=== PATIENT | female | born 1940 | race Caucasian/White ===

== ENCOUNTER 2018-03-06 02:53 | Inpatient (IN) | payer MEDICARE, OTHER ==
[2018-03-06] MEDS ORDERED: IPRATROPIUM/ALBUTEROL 0.5-2.5 MG/3 ML AMPUL NEB ONE (03:50)
--- NOTE | 2018-03-06 04:25 | RADIOLOGY REPORT (SQ) ---
EXAM DESCRIPTION: XR CHEST 2 VIEWS COMPLETED DATE/TME: 03/06/2018 04:08 CLINICAL HISTORY: 77 years, Female, cough COMPARISON: None. NUMBER OF VIEWS: Two TECHNIQUE: Two views of the chest LIMITATIONS: None. FINDINGS: There is pulmonary vascular congestion with interstitial edema. The heart is normal in size. There is no pneumothorax. Small pleural effusions may be present. There is no acute fracture. IMPRESSION: Pulmonary vascular congestion with interstitial edema 2010 [employer]- All Rights Reserved
[2018-03-06 04:58] LABS: ABSOLUTE EOSINOPHILS # (AUTO) 0.1 10^3/uL (0.0-0.6); ABSOLUTE LYMPHOCYTES (AUTO) 1.7 10^3/uL (0.5-4.7); ABSOLUTE MONOCYTES (AUTO) 0.6 10^3/uL (0.1-1.4); ABSOLUTE NEUT (AUTO) 3.8 10^3/uL (1.7-8.2); BASOPHILS % (AUTO) 0.6 % (0-2); EOSINOPHILS % (AUTO) 1.3 % (0-6); HEMOGLOBIN 13.7 g/dL (12.0-15.5); LYMPHOCYTES % (AUTO) 27.7 % (13-45); MEAN CORPUSCULAR HEMOGLOBIN 29.1 pg (27.0-33.4); MEAN CORPUSCULAR HGB CONC 34.3 g/dL (32.0-36.0); MEAN CORPUSCULAR VOLUME 85 fl (80-97); MONOCYTES % (AUTO) 9.4 % (3-13); PLATELET COUNT 246 10^3/uL (150-450); RED BLOOD COUNT 4.71 10^6/uL (3.72-5.28); RED CELL DISTRIBUTION WIDTH 14.2 % (11.5-14.0); TOTAL CELLS COUNTED % (AUTO) 100 %; WHITE BLOOD COUNT 6.2 10^3/uL (4.0-10.5)
[2018-03-06 05:12] LABS: ALANINE AMINOTRANSFERASE 24 U/L (9-52); ALBUMIN 3.9 g/dL (3.5-5.0); ALKALINE PHOSPHATASE 67 U/L (38-126); ANION GAP 9 (5-19); ASPARTATE AMINO TRANSFERASE 24 U/L (14-36); BILIRUBIN,DIRECT 0.5 mg/dL (0.0-0.4); BILIRUBIN,TOTAL 0.8 mg/dL (0.2-1.3); BLOOD UREA NITROGEN 16 mg/dL (7-20); CALCIUM 9.3 mg/dL (8.4-10.2); CARBON DIOXIDE 28 mmol/L (22-30); CHLORIDE 102 mmol/L (98-107); GLUCOSE 131 mg/dL (75-110); SODIUM 139.4 mmol/L (137-145); TOTAL PROTEIN 6.9 g/dL (6.3-8.2)
--- NOTE | 2018-03-06 06:35 | ER Document Report ---
ED General - General Chief Complaint: Shortness Of Breath Stated Complaint: CONGESTION Time Seen by Provider: 03/06/18 03:18 Mode of Arrival: Ambulatory Information source: Patient Notes: 69-year-old female patient presents with cough and congestion times 1 week. Patient also reports sore throat. Patient states that she was sleeping tonight when the cough woke her up. Patient denies any fever, chest pain or shortness of breath. Patient reports past medical history of hypertension but states she does not take any medications for same. Patient reports she has no primary care provider as she states she "fired" her most recent provider Dr. Sanderson. TRAVEL OUTSIDE OF THE [place] IN LAST 30 DAYS: No - Related Data Allergies/Adverse Reactions: No Known Allergies Allergy (Verified 03/06/18 03:07) Past Medical History - General Information source: Patient - Social History Smoking Status: Never Smoker Frequency of alcohol use: Rare Drug Abuse: None Family History: Reviewed & Not Pertinent Patient has suicidal ideation: No Patient has homicidal ideation: No - Past Medical History Cardiac Medical History: Reports: Hx Hypertension Denies: Hx Coronary Artery Disease, Hx Heart Attack Pulmonary Medical History: Denies: Hx Asthma, Hx Bronchitis, Hx COPD, Hx Pneumonia Neurological Medical History: Denies: Hx Cerebrovascular Accident, Hx Seizures Endocrine Medical History: Reports: Hx Diabetes Mellitus Type 2 Renal/ Medical History: Denies: Hx Peritoneal Dialysis Musculoskeletal Medical History: Denies Hx Arthritis Surgical Hx: Negative - Immunizations Hx Diphtheria, Pertussis, Tetanus Vaccination: Yes Hx Pneumococcal Vaccination: 02/06/15 Review of Systems - Review of Systems Respiratory: Cough -: Yes All other systems reviewed and negative Physical Exam - Vital signs Vitals: Temp Pulse Resp BP Pulse Ox 97.5 F 100 22 H 172/102 H 93 03/06/18 02:59 03/06/18 02:59 03/06/18 02:59 03/06/18 02:59 03/06/18 02:59 - Notes Notes: PHYSICAL EXAMINATION: GENERAL: Well-appearing, well-nourished and in no acute distress. HEAD: Atraumatic, normocephalic. EYES: Pupils equal round and reactive to light, extraocular movements intact, conjunctiva are normal. ENT: Nares patent, oropharynx clear without exudates. Moist mucous membranes. NECK: Normal range of motion, supple without lymphadenopathy LUNGS: Mild wheezes noted to the right lower lobe. HEART: Regular rate and rhythm without murmurs ABDOMEN: Soft, nontender, nondistended abdomen. No guarding, no rebound. No masses appreciated. Female : deferred Musculoskeletal: Normal range of motion, no pitting or edema. No cyanosis. NEUROLOGICAL: Cranial nerves grossly intact. Normal speech, normal gait. Normal sensory, motor exams PSYCH: Normal mood, normal affect. SKIN: Warm, Dry, normal turgor, no rashes or lesions noted. Course - Re-evaluation Re-evalutation: Patient given DuoNeb and patient reports significant improvement in her symptoms. Awaiting results of chest x-ray. Chest x-ray shows vascular congestion. Patient continues to report marked improvement since arrival. Patient remains hypertensive, will add on lab work at this time. BNP 2270, otherwise laboratory studies unremarkable. Cardiac enzymes pending. Blood pressure 189/103. Will give patient 20 mg of IV Lasix and consult hospitalist for admission. Troponin 0.039, mild ST elevations in leads 1 & 2 on EKG with no reciprocal changes. Patient accepted for admission by Dr. Ramos. Patient will be placed on telemetry floor. Patient aware of plan of care. - Vital Signs Vital signs: Temp Pulse Resp BP Pulse Ox 97.5 F 100 22 H 189/103 H 98 03/06/18 02:59 03/06/18 02:59 03/06/18 02:59 03/06/18 06:22 03/06/18 06:26 - Laboratory Result Diagrams: 03/06/18 04:45 03/06/18 04:45 Laboratory results interpreted by me: 03/06/18 03/06/18 03/06/18 04:45 04:45 04:45 RDW 14.2 H Glucose 131 H Direct Bilirubin 0.5 H NT-Pro-B Natriuret Pep 2270 H Discharge - Discharge Clinical Impression: Congestive heart failure Qualifiers: Heart failure type: unspecified Heart failure chronicity: acute Qualified Code( s): I50.9 - Heart failure, unspecified Condition: Stable Disposition: ADMITTED INPATIENT Admitting Provider: Hospitalist Unit Admitted: Telemetry
[2018-03-06] MEDS ORDERED: FUROSEMIDE INJ/PF 20 MG/2 ML SDV IV ONE (06:39)
[2018-03-06 07:11] LABS: CREATINE KINASE MB 1.54 ng/mL (<4.55)
[2018-03-06 07:17] LABS: TROPONIN I 0.039 ng/mL
[2018-03-06] MEDS ORDERED: ONDANSETRON HCL INJ/PF 4 MG/2 ML SDV IV PRN (09:00)
[2018-03-06] MEDS ORDERED: MAGNESIUM HYDROXIDE SUSP 30 ML UDCUP PO PRN (09:00)
[2018-03-06] MEDS ORDERED: ACETAMINOPHEN 325 MG TABLET PO PRN (09:00)
--- NOTE | 2018-03-06 09:37 | PDOC H&P ---
History of Present Illness Admission Date/PCP: 03/06/18 07:46 Patient complains of: Shortness of breath History of Present Illness: MARIALUISA COMER is a 77 year old female who presents to the emergency room with shortness of breath. Patient has a remote history of hypertension however is been off medications for the past year and a half. She is a former patient of Dr. Benitez however had a falling out approximately a year ago and has not reestablished with a new primary care. The patient states over the past few days she has had some mild increasing shortness of breath. She denies any chest pain or pressure she presented to the emergency room where chest x-ray was performed which showed some vascular congestion and mild pulmonary edema. Her saturations on room air were 98% her BNP was above 2000. EKG showed a sinus rhythm with LVH. Patient states she has been told she is diabetic in the past but her glycemic readings have always been normal she was on met Darrick remotely but took herself off. She currently denies she is ever had diabetes. Patient has a remote history of breast cancer 18 years ago underwent chemotherapy and radiation she also had a laparotomy for an unknown tumor of the abdomen that was removed she never received treatment and its presumed to be benign but she is not sure what exactly the tumor was. She has is present in the room also states that she has apneic spells when sleeping fairly frequently. He has sleep apnea and utilizes a CPAP machine however the patient has never been evaluated for obstructive sleep apnea. Patient will be admitted for treatment and evaluation of her congestive heart failure and hypertensive urgency. Past Medical History Cardiac Medical History: Reports: Hypertension Denies: Coronary Artery Disease, Myocardial Infarction Pulmonary Medical History: Reports: Sleep Apnea - Has been states she has frequent apneic spells at night no formal workup do Denies: Asthma, Bronchitis, Chronic Obstructive Pulmonary Disease (COPD), Pneumonia Neurological Medical History: Denies: Seizures Endocrine Medical History: Reports: Diabetes Mellitus Type 2 Malignancy Medical History: Reports: Breast Cancer, Other - Unknown intra- abdominal tumor resected presumed benign Musculoskeltal Medical History: Denies: Arthritis Hematology: Denies: Anemia Past Surgical History Past Surgical History: Reports: Mastectomy - Right breast lumpectomy, Other - Colonoscopy 2017, exploratory laparotomy with resection tumor Social History Smoking Status: Never Smoker Frequency of Alcohol Use: Rare Hx Recreational Drug Use: No - Advance Directive Resuscitation Status: Full Code Family History Family History: Hypertension - Other, Malignancy - Paternal grandmother Parental Family History Reviewed: Yes Children Family History Reviewed: Yes Sibling(s) Family History Reviewed.: Yes Medication/Allergy Home Medications: Multivitamin [Tab-A-Chanelle] 1 each PO DAILY 03/06/18 [place]-3 Fatty Acids/Fish Oil [Fish Oil 1,000 mg Capsule] 1 each PO DAILY Allergies/Adverse Reactions: No Known Allergies Allergy (Verified 03/06/18 03:07) Review of Systems All systems: reviewed and no additional remarkable complaints except as stated - Shortness of breath Physical Exam Vital Signs: Temp Pulse Resp BP Pulse Ox 97.5 F 100 18 163/92 H 96 03/06/18 02:59 03/06/18 02:59 03/06/18 08:01 03/06/18 08:00 03/06/18 08:01 General appearance: PRESENT: no acute distress, well-developed, well-nourished Head exam: PRESENT: atraumatic, normocephalic Eye exam: PRESENT: conjunctiva pink, EOMI, PERRLA. ABSENT: scleral icterus Ear exam: PRESENT: normal external ear exam Mouth exam: PRESENT: moist, tongue midline Neck exam: ABSENT: carotid bruit, JVD, lymphadenopathy, thyromegaly Respiratory exam: PRESENT: clear to auscultation hellen, rales - Posterior metrical. ABSENT: rhonchi, wheezes Cardiovascular exam: PRESENT: RRR. ABSENT: diastolic murmur, rubs, systolic murmur Pulses: PRESENT: normal dorsalis pedis pul. ABSENT: +1 pedal pulses bilateral Vascular exam: PRESENT: normal capillary refill GI/Abdominal exam: PRESENT: normal bowel sounds, soft. ABSENT: distended, guarding, mass, organolmegaly, rebound, tenderness Rectal exam: PRESENT: deferred Extremities exam: PRESENT: full ROM. ABSENT: calf tenderness, clubbing, pedal edema Neurological exam: PRESENT: alert, awake, oriented to person, oriented to place , oriented to time, oriented to situation, CN II-XII grossly intact. ABSENT: motor sensory deficit Psychiatric exam: PRESENT: appropriate affect, normal mood. ABSENT: homicidal ideation, suicidal ideation Skin exam: PRESENT: dry, intact, warm. ABSENT: cyanosis, rash Results Impressions: Chest X-Ray 03/06/18 04:08 IMPRESSION: Pulmonary vascular congestion with interstitial edema 2010 [employer]- All Rights Reserved Assessment & Plan - Diagnosis (1) Acute congestive heart failure Is this a current diagnosis for this admission?: Yes Plan: New onset CHF. Date beta-blaine ISHAN inhibitor and diuretic. Multiple possibilities as to etiology. Patient has a remote history of breast cancer receiving chemotherapy and radiation 18 years ago. 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 Will diurese patient with IV Lasix obtain echocardiogram when CHF resolved. We will obtain an overnight oximetry for the reported apneas by her . Obstructive sleep apnea would account for her hypertension and CHF that is severe enough. Patient will need a stress test when congestive heart failure resolved. Consult Dr. Capellan Case discussed with him (2) Hypertensive urgency Is this a current diagnosis for this admission?: Yes Plan: Begin Coreg lisinopril in addition to the Lasix for the congestive heart failure. Monitor blood pressure and adjust medications going forward. (3) Hyperlipidemia Is this a current diagnosis for this admission?: Yes Plan: History of hyperlipidemia as per patient currently not being treated will obtain a lipid panel in the morning if indicated initiate cholesterol medicine at that time. (4) Borderline hyperglycemia Is this a current diagnosis for this admission?: Yes Plan: Patient reports she was told she was diabetic in the past however she is not on any medication she checks her blood sugars and says they are always normal. We will check hemoglobin A1c I suspect patient is a diet-controlled diabetic. (5) Elevated troponin Is this a current diagnosis for this admission?: Yes Plan: Mild elevation will trend troponin suspect demand ischemia due to heart failure. - Time Time Spent: 50 to 70 Minutes Within: within 72 hours - Inpatient Certification Based on my medical assessment, after consideration of the patient's comorbidities, presenting symptoms, or acuity I expect that the services needed warrant INPATIENT care.: Yes I certify that my determination is in accordance with my understanding of Medicare's requirements for reasonable and necessary INPATIENT services [42 CFR 412.3e].: Yes Medical Necessity: Need Close Monitoring Due to Risk of Patient Decompensation - New onset congestive heart failure in a patient with minimal risk factors.
[2018-03-06] MEDS: CARVEDILOL 6.25 MG TABLET PO SCH ×2 (10:25→21:00)
[2018-03-06] MEDS: POTASSIUM CHLORIDE 10 MEQ CAPSULE.ER PO SCH (10:25)
[2018-03-06] MEDS: FUROSEMIDE INJ/PF 20 MG/2 ML SDV IV SCH ×2 (10:26→21:00)
[2018-03-06] MEDS: LISINOPRIL 10 MG TABLET PO SCH (10:26)
[2018-03-06] MEDS: DOCUSATE SODIUM 100 MG CAPSULE PO SCH (10:26)
[2018-03-06] MEDS: ENOXAPARIN SODIUM INJ 30 MG/0.3 ML DISP.SYRIN SUBCUT SCH (10:26)
--- NOTE | 2018-03-06 20:22 | EKG REPORT ---
SEVERITY:- ABNORMAL ECG - SINUS RHYTHM PROBABLE LEFT ATRIAL ABNORMALITY PROBABLE LEFT VENTRICULAR HYPERTROPHY PROLONGED QT INTERVAL : Confirmed by: Mirna Capellan MD 06-Mar-2018 20:21:54
[2018-03-07 05:52] LABS: ABSOLUTE EOSINOPHILS # (AUTO) 0.1 10^3/uL (0.0-0.6); ABSOLUTE LYMPHOCYTES (AUTO) 2.3 10^3/uL (0.5-4.7); ABSOLUTE MONOCYTES (AUTO) 0.6 10^3/uL (0.1-1.4); ABSOLUTE NEUT (AUTO) 2.8 10^3/uL (1.7-8.2); BASOPHILS % (AUTO) 0.8 % (0-2); EOSINOPHILS % (AUTO) 1.9 % (0-6); HEMATOCRIT 38.5 % (36.0-47.0); HEMOGLOBIN 13.1 g/dL (12.0-15.5); LYMPHOCYTES % (AUTO) 39.2 % (13-45); MEAN CORPUSCULAR HGB CONC 34.1 g/dL (32.0-36.0); MEAN CORPUSCULAR VOLUME 85 fl (80-97); MONOCYTES % (AUTO) 10.2 % (3-13); PLATELET COUNT 234 10^3/uL (150-450); RED BLOOD COUNT 4.52 10^6/uL (3.72-5.28); RED CELL DISTRIBUTION WIDTH 14.3 % (11.5-14.0); SEGMENTED NEUTROPHILS % (AUTO) 47.9 % (42-78); TOTAL CELLS COUNTED % (AUTO) 100 %; WHITE BLOOD COUNT 5.8 10^3/uL (4.0-10.5)
[2018-03-07 06:10] LABS: ANION GAP 6 (5-19); BLOOD UREA NITROGEN 25 mg/dL (7-20); CALCIUM 9.5 mg/dL (8.4-10.2); CARBON DIOXIDE 30 mmol/L (22-30); CHLORIDE 100 mmol/L (98-107); CHOLESTEROL 219.12 mg/dL (0-200); GLUCOSE 114 mg/dL (75-110); POTASSIUM 4.4 mmol/L (3.6-5.0); SODIUM 136.3 mmol/L (137-145); TRIGLYCERIDES 165 mg/dL (<150)
[2018-03-07 06:21] LABS: DIRECT LDL 136 mg/dL (<100)
[2018-03-07 08:45] VITALS: BP 136/63
--- NOTE | 2018-03-07 09:23 | PDOC DISCHARGE SUMMARY ---
General - Admit/Disc Date/PCP Admission Date/Primary Care Provider: 03/06/18 07:46 Discharge Date: 03/07/18 - Discharge Diagnosis (1) Acute congestive heart failure Is this a current diagnosis for this admission?: Yes (2) Hypertensive urgency Is this a current diagnosis for this admission?: Yes (3) Hyperlipidemia Is this a current diagnosis for this admission?: Yes Summary: Begun on Lipitor 20 mg daily (4) Borderline hyperglycemia Is this a current diagnosis for this admission?: Yes Summary: Hemoglobin A1c 5.7 no diabetes (5) Elevated troponin Is this a current diagnosis for this admission?: Yes Summary: Demand ischemia from CHF (6) Cardiac murmur Is this a current diagnosis for this admission?: Yes - Additional Information Resuscitation Status: Full Code Discharge Diet: Cardiac Discharge Activity: Activity As Tolerated Prescriptions: Atorvastatin Calcium [Lipitor 20 mg Tablet] 20 mg PO QHS #30 tablet Carvedilol [Coreg 6.25 mg Tablet] 6.25 mg PO Q12 #60 tablet Hydrochlorothiazide 25 mg PO DAILY #30 tablet Lisinopril [Prinivil 10 mg Tablet] 10 mg PO DAILY #30 tablet Home Medications: Ferrous Sulfate [Feosol 325 mg Tablet] 325 mg PO MOWEFR 03/06/18 Multivitamin with Iron [One Daily Multivitamin] 1 tab PO DAILY 03/06/18 [place]-3 Acid Ethyl Esters [Lovaza 1 gm Capsule] 1 gm PO DAILY 03/06/18 Aspirin [Aspirin 81 mg Chewable Tablet] 81 mg PO DAILY tab.chew 03/07/18 Atorvastatin Calcium [Lipitor 20 mg Tablet] 20 mg PO QHS #30 tablet 03/07/18 Carvedilol [Coreg 6.25 mg Tablet] 6.25 mg PO Q12 #60 tablet 03/07/18 Hydrochlorothiazide 25 mg PO DAILY #30 tablet 03/07/18 Lisinopril [Prinivil 10 mg Tablet] 10 mg PO DAILY #30 tablet 03/07/18 History of Present Illness History of Present Illness: MARIALUISA COMER is a 77 year old female who presents to the emergency room with shortness of breath. Patient has a remote history of hypertension however is been off medications for the past year and a half. She is a former patient of Dr. Benitez however had a falling out approximately a year ago and has not reestablished with a new primary care. The patient states over the past few days she has had some mild increasing shortness of breath. She denies any chest pain or pressure she presented to the emergency room where chest x-ray was performed which showed some vascular congestion and mild pulmonary edema. Her saturations on room air were 98% her BNP was above 2000. EKG showed a sinus rhythm with LVH. Hospital Course Hospital Course: Patient was admitted to telemetry bed and initiated on IV Lasix for the congestive heart failure. Her blood pressure was treated with Coreg and lisinopril. A consultation with cardiology was obtained and Dr. Capellan felt that her failure had quickly resolved as it was mild in nature and recommended outpatient workup with stress test and echocardiogram after patient has been on medicines for a few days. This patient did not require oxygen was asymptomatic she was discharged home. Prior to discharge hemoglobin A1c was obtained that was 5.7 indicating patient was not diabetic. Cholesterol was elevated and she was initiated on statin therapy with Lipitor. An overnight pulse oximetry was performed because the is concerned she had some sleep apnea the report is pending at the time of this dictation and will be followed up in the outpatient setting. Physical Exam Vital Signs: Temp Pulse Resp BP Pulse Ox 97.8 F 78 16 136/63 H 96 03/07/18 08:00 03/07/18 08:00 03/07/18 08:00 03/07/18 08:00 03/07/18 08:00 Pulse Oximeter Nocturnal Start: 03/06/18 18: 46 Freq: RTQ4 Status: Complete Document 03/06/18 10:12 CBR (Rec: 03/07/18 01:14 CBR [id number]) Nocturnal Pulse Oximetry Equipment Usage Initial Set Up Nocturnal Spo2 Charge Charge Now Oxygen Delivery Method (includes room Room Air air) O2 Sat by Pulse Oximetry (92-100) 92 Continuous SpO2 Machine # [id number] Intake & Output 03/06/18 03/07/18 03/08/18 06:59 06:59 06:59 Intake Total 532 Output Total 982 Balance -450 Weight 68.8 kg General appearance: PRESENT: no acute distress, well-developed, well-nourished Neck exam: ABSENT: carotid bruit, JVD, lymphadenopathy, thyromegaly Respiratory exam: PRESENT: clear to auscultation hellen. ABSENT: rales, rhonchi, wheezes Cardiovascular exam: PRESENT: RRR, systolic murmur - 1/6. ABSENT: diastolic murmur, rubs GI/Abdominal exam: PRESENT: normal bowel sounds, soft. ABSENT: distended, guarding, mass, organolmegaly, rebound, tenderness Extremities exam: PRESENT: full ROM. ABSENT: calf tenderness, clubbing, pedal edema Results Laboratory Results: 03/07/18 05:22 03/07/18 05:22 03/06/18 03/07/18 03/07/18 10:39 05:22 05:22 WBC 5.8 RBC 4.52 Hgb 13.1 Hct 38.5 MCV 85 MCH 29.0 MCHC 34.1 RDW 14.3 H Plt Count 234 Seg Neutrophils % 47.9 Lymphocytes % 39.2 Monocytes % 10.2 Eosinophils % 1.9 Basophils % 0.8 Absolute Neutrophils 2.8 Absolute Lymphocytes 2.3 Absolute Monocytes 0.6 Absolute Eosinophils 0.1 Absolute Basophils 0.0 Sodium 136.3 L Potassium 4.4 Chloride 100 Carbon Dioxide 30 Anion Gap 6 BUN 25 H Creatinine 0.77 Est GFR ( Amer) > 60 Est GFR (Non-Af Amer) > 60 Glucose 114 H Calcium 9.5 Magnesium 2.1 Triglycerides 165 H Cholesterol 219.12 H LDL Cholesterol Direct 136 H VLDL Cholesterol 33.0 H HDL Cholesterol 44 TSH 1.28 03/06/18 03/06/18 03/06/18 10:39 15:50 21:10 Troponin I 0.040 0.033 0.020 NT-Pro-B Natriuret Pep 03/07/18 05:22 Troponin I NT-Pro-B Natriuret Pep 2730 H Impressions: Chest X-Ray 03/06/18 04:08 IMPRESSION: Pulmonary vascular congestion with interstitial edema 2010 [employer]- All Rights Reserved Qualifiers - * PATIENT BEING DISCHARGED WITH ANY OF THE FOLLOWING DIAGNOSIS: Heart Failure HF Pt being discharged on ACEI for LVEF less than 40%?: Yes HF Pt being discharged on ARBS for LVEF less than 40%?: No Reason(s) for not prescribing ARBS:: Medical Contraindication HF Pt with Afib discharged with Warfarin?: No Reason(s) for not prescribing Warfarin:: Not indicated - No A. fib HF Pt discharged on evidence-based Beta Julissa:: Yes Plan Discharge Plan: Follow-up with Dr. Caplelan in 5-7 days Time Spent: Greater than 30 Minutes
[2018-03-07] MEDS: ENOXAPARIN SODIUM INJ 30 MG/0.3 ML DISP.SYRIN SUBCUT SCH (09:57)
[2018-03-07] MEDS: POTASSIUM CHLORIDE 10 MEQ CAPSULE.ER PO SCH (09:57)
[2018-03-07] MEDS: FUROSEMIDE INJ/PF 20 MG/2 ML SDV IV SCH (09:57)
[2018-03-07] MEDS: DOCUSATE SODIUM 100 MG CAPSULE PO SCH (09:57)
[2018-03-07] MEDS: LISINOPRIL 10 MG TABLET PO SCH (09:57)
[2018-03-07] MEDS: CARVEDILOL 6.25 MG TABLET PO SCH (09:57)
[2018-03-07] MEDS ORDERED: ASPIRIN 81 MG TABLET, CHEWABLE PO SCH (10:00)
[2018-03-07] MEDS ORDERED: ATORVASTATIN CALCIUM 20 MG TABLET PO SCH (22:00)
== END 2018-03-07 11:10 | disposition home or self-care (01) | DRG 293 ==
LOC: ER 02:53 → EH 07:46 → 5 10:20
PROVIDERS: ADMIT Internal Medicine; ATTEND Internal Medicine
DX: I11.0 Hypertensive heart disease with heart failure (principal); I50.9 Heart failure, unspecified; I16.0 Hypertensive urgency; E78.5 Hyperlipidemia, unspecified; G47.30 Sleep apnea, unspecified; Z85.3 Personal history of malignant neoplasm of breast
CPT/HCPCS: 36415; 71046; 80048; 80053; 80061; 82550; 82553; 83036; 83735; 83880; 84443; 84484; 85025; 93005; 93010; 94640; 94762; 99285; J1650; J1940; J7620

== ENCOUNTER 2019-08-03 01:09 | Observation (INO) | payer MEDICARE, OTHER ==
[2019-08-03 02:04] LABS: ABSOLUTE EOSINOPHILS # (AUTO) 0.1 10^3/uL (0.0-0.6); ABSOLUTE LYMPHOCYTES (AUTO) 1.2 10^3/uL (0.5-4.7); ABSOLUTE MONOCYTES (AUTO) 0.5 10^3/uL (0.1-1.4); ABSOLUTE NEUT (AUTO) 4.4 10^3/uL (1.7-8.2); BASOPHILS % (AUTO) 0.6 % (0-2); EOSINOPHILS % (AUTO) 1.2 % (0-6); HEMATOCRIT 36.2 % (36.0-47.0); HEMOGLOBIN 12.3 g/dL (12.0-15.5); LYMPHOCYTES % (AUTO) 19.7 % (13-45); MEAN CORPUSCULAR VOLUME 85 fl (80-97); MONOCYTES % (AUTO) 8.4 % (3-13); PLATELET COUNT 239 10^3/uL (150-450); RED BLOOD COUNT 4.24 10^6/uL (3.72-5.28); RED CELL DISTRIBUTION WIDTH 13.5 % (11.5-14.0); SEGMENTED NEUTROPHILS % (AUTO) 70.1 % (42-78); TOTAL CELLS COUNTED % (AUTO) 100 %; WHITE BLOOD COUNT 6.2 10^3/uL (4.0-10.5)
[2019-08-03 02:16] LABS: ALBUMIN 3.5 g/dL (3.5-5.0); ALKALINE PHOSPHATASE 99 U/L (38-126); ANION GAP 9 (5-19); ASPARTATE AMINO TRANSFERASE 98 U/L (14-36); BILIRUBIN,TOTAL 0.6 mg/dL (0.2-1.3); BLOOD UREA NITROGEN 22 mg/dL (7-20); CALCIUM 8.9 mg/dL (8.4-10.2); CARBON DIOXIDE 25 mmol/L (22-30); CHLORIDE 98 mmol/L (98-107); GLUCOSE 142 mg/dL (75-110); TOTAL PROTEIN 6.3 g/dL (6.3-8.2)
--- NOTE | 2019-08-03 04:01 | RADIOLOGY REPORT (SQ) ---
CLINICAL HISTORY: SOB COMPARISON: None. TECHNIQUE: XR CHEST 1 VIEW 08/03/2019 1:24 AM [facility]AM[facility] REPAIRER FINDINGS: The heart is enlarged. There is mild bibasilar atelectasis. There are small pleural effusions. There is no pneumothorax. There are no acute osseous findings. IMPRESSION: No convincing pneumonia.
--- NOTE | 2019-08-03 04:59 | ER Document Report ---
ED Respiratory Problem - General Chief Complaint: Shortness Of Breath Stated Complaint: SHORTNESS OF BREATH Time Seen by Provider: 08/03/19 04:49 Notes: Patient is an 79-year-old female that comes emergency department by EMS for chief complaint of difficulty breathing. She states this is been worsening for about 1 week now. She states over the past day she can barely lie flat and she can barely walk without getting very short of breath. She denies history of heart failure, she denies cough, fever, chest pain, dizziness. She states she is treated for hypertension and occasionally she takes a diuretic for lower extremity swelling. She denies smoking, history of VT or CAD, or ever getting an echocardiogram. She denies history of blood clot. Patient does report subtle swelling in both legs. TRAVEL OUTSIDE OF THE [place] IN LAST 30 DAYS: No - Related Data Allergies/Adverse Reactions: No Known Allergies Allergy (Verified 03/06/18 03:07) Past Medical History - General Information source: Patient - Social History Smoking Status: Never Smoker Frequency of alcohol use: None Drug Abuse: None Lives with: Family Family History: Hypertension - Other, Malignancy - Paternal grandmother Patient has suicidal ideation: No Patient has homicidal ideation: No - Past Medical History Cardiac Medical History: Reports: Hx Hypertension Denies: Hx Coronary Artery Disease, Hx Heart Attack Pulmonary Medical History: Reports: Hx Sleep Apnea - Has been states she has frequent apneic spells at night no formal workup do Denies: Hx Asthma, Hx Bronchitis, Hx COPD, Hx Pneumonia Neurological Medical History: Denies: Hx Cerebrovascular Accident, Hx Seizures Endocrine Medical History: Reports: Hx Diabetes Mellitus Type 2 Renal/ Medical History: Denies: Hx Peritoneal Dialysis Malignancy Medical History: Reports: Hx Breast Cancer Musculoskeletal Medical History: Denies Hx Arthritis Past Surgical History: Reports: Hx Mastectomy - Right breast lumpectomy, Other - Colonoscopy 2017, exploratory laparotomy with resection tumor - Immunizations Hx Diphtheria, Pertussis, Tetanus Vaccination: Yes Hx Pneumococcal Vaccination: 02/06/15 Review of Systems - Review of Systems Constitutional: No symptoms reported EENT: No symptoms reported Cardiovascular: See HPI Respiratory: See HPI Gastrointestinal: No symptoms reported Genitourinary: No symptoms reported Female Genitourinary: No symptoms reported Musculoskeletal: No symptoms reported Skin: No symptoms reported Hematologic/Lymphatic: No symptoms reported Neurological/Psychological: No symptoms reported Physical Exam - Vital signs Vitals: Temp Pulse Resp BP Pulse Ox 97.4 F 83 18 147/96 H 95 08/03/19 01:27 08/03/19 01:27 08/03/19 01:27 08/03/19 01:27 08/03/19 01:27 - Notes Notes: GENERAL: Alert, interacts well. No acute distress, she lies flat or ambulates HEAD: Normocephalic, atraumatic. EYES: Pupils equal, round, and reactive to light. Extraocular movements intact. ENT: Oral mucosa moist, tongue midline. Oropharynx unremarkable. Airway patent. LUNGS: Obvious rales in all lung martinez HEART: Regular rate and rhythm. No murmur ABDOMEN: Soft, non-tender. Non-distended. Bowel sounds present in all 4 quadrants. GENITOURINARY: Deferred EXTREMITIES: Moves all 4 extremities spontaneously. Borderline lower extremity edema bilaterally with no pitting. Normal radial and dorsalis pedis pulses bilaterally. No cyanosis. BACK: no cervical, thoracic, lumbar midline tenderness. No saddle anesthesia, normal distal neurovascular exam. Moves all extremities in full range of motion. NEUROLOGICAL: Alert and oriented x3. Normal speech. Cranial nerves II through XII grossly intact. PSYCH: Normal affect, normal mood. SKIN: Warm, dry, normal turgor. No rashes or lesions noted. Course - Re-evaluation Re-evalutation: EKG shows cardiomegaly, per my read there appears to be vascular congestion but this is not overt per radiologist read, no definite pneumonia. EKG nonischemic with prolonged QTC but sinus rhythm, this is similar to prior. Patient is stating that her CHF has never been diagnosed and she has never had an echocardiogram for this. She has obvious rales on exam, I did ambulate her and she became very dyspneic, grabbing at me, short of breath. She does not have significant lower extremity edema. She is not hypoxic while at rest. She was placed back on oxygen after she ambulated. CBC unremarkable, chemistry nonspecific, troponin is not elevated. BNP is very elevated at greater than 10,000. Discussed with , discussed with Dr. Saenz, because of patient's dyspnea on exertion, age, apparent CHF which has not been worked up or specifically treated, will discuss with hospitalist for admission. Family and patient state appreciation and agreement. Discussed with Dr. Ribera, patient excepted to full admission telemetry. - Vital Signs Vital signs: Temp Pulse Resp BP Pulse Ox 97.5 F 83 18 138/76 H 93 08/03/19 05:54 08/03/19 01:27 08/03/19 07:01 08/03/19 07:01 08/03/19 07:01 - Laboratory Result Diagrams: 08/03/19 01:45 08/03/19 01:45 Laboratory results interpreted by me: 08/03/19 08/03/19 01:45 01:45 Sodium 131.6 L BUN 22 H Glucose 142 H AST 98 H ALT 96 H NT-Pro-B Natriuret Pep 22362 H Discharge - Discharge Clinical Impression: Dyspnea on exertion, Elevated brain natriuretic peptide (BNP) level Congestive heart failure Qualifiers: Heart failure type: unspecified Heart failure chronicity: acute Qualified Code(s): I50.9 - Heart failure, unspecified Condition: Stable Disposition: ADMITTED INPATIENT Admitting Provider: Bacilio (Hospitalist) Unit Admitted: Telemetry
[2019-08-03] MEDS ORDERED: FUROSEMIDE INJ/PF 20 MG/2 ML SDV IV ONE (05:27)
[2019-08-03] MEDS ORDERED: MAG HYDROX/AL HYDROX/SIMETH SUSP 30 ML UDCUP PO PRN (06:03)
--- NOTE | 2019-08-03 06:17 | PDOC H&P ---
History of Present Illness Admission Date/PCP: 08/03/19 05:55 ISMAEL DE LA ROSA MD Patient complains of: Shortness of breath History of Present Illness: MARIALUISA COMER is a 79 year old female with a past medical history of hypertension, sleep apnea, status post breast cancer with chemoradiation 20 years ago. She presents with 1 week of exertional shortness of breath denying chest pain nausea vomiting but admits to palpitations. Prompting her to seek ev aluation at primary care Dr. De La Rosa prescribing a water pill without significant improvement she is prompted to seek evaluation the emergency department where she is found to have a long QT interval unchanged from previous EKG chest x-ray showing pulmonary vascular congestion and a BNP of 10,000. She receives IV Lasix, supplemental oxygen and referred to the hospitalist for admission. She denies recent change in medications with exception to above denying regular NSAIDs, change of weight, heat or cold intolerance. She does admits to insomnia and BiPAP noncompliance. Past Medical History Cardiac Medical History: Reports: Hypertension Denies: Coronary Artery Disease, Myocardial Infarction Pulmonary Medical History: Reports: Sleep Apnea - Has been states she has frequent apneic spells at night no formal workup do Denies: Asthma, Bronchitis, Chronic Obstructive Pulmonary Disease (COPD), Pneumonia Neurological Medical History: Denies: Seizures Malignancy Medical History: Reports: Breast Cancer Musculoskeltal Medical History: Denies: Arthritis Hematology: Denies: Anemia Past Surgical History Past Surgical History: Reports: Mastectomy - Right breast lumpectomy, Other - Co lonoscopy 2017, exploratory laparotomy with resection tumor Social History Information Source: Patient Smoking Status: Never Smoker Frequency of Alcohol Use: Rare Hx Recreational Drug Use: No Drugs: None Hx Prescription Drug Abuse: No - Advance Directive Resuscitation Status: Full Code Family History Family History: Hypertension - Other, Malignancy - Paternal grandmother Parental Family History Reviewed: Yes Children Family History Reviewed: Yes Sibling(s) Family History Reviewed.: Yes Medication/Allergy Home Medications: Ferrous Sulfate [Feosol 325 mg Tablet] 325 mg PO MOWEFR 03/06/18 Multivit-Min/Ferrous Sulfate [One Daily Multivit-Mineral Tab] 1 tab PO DAILY 03/06/18 [place]-3 Acid Ethyl Esters [Lovaza 1 gm Capsule] 1 gm PO DAILY 03/06/18 Aspirin [Aspirin 81 mg Chewable Tablet] 81 mg PO DAILY tab.chew 03/07/18 Atorvastatin Calcium [Lipitor 20 mg Tablet] 20 mg PO QHS #30 tablet 03/07/18 Carvedilol [Coreg 6.25 mg Tablet] 6.25 mg PO Q12 #60 tablet 03/07/18 Hydrochlorothiazide 25 mg PO DAILY #30 tablet 03/07/18 Lisinopril [Prinivil 10 mg Tablet] 10 mg PO DAILY #30 tablet 03/07/18 Allergies/Adverse Reactions: No Known Allergies Allergy (Verified 03/06/18 03:07) Review of Systems Constitutional: PRESENT: as per HPI. ABSENT: anorexia, headache(s), night sweats, weakness, weight gain, weight loss Eyes: ABSENT: visual disturbances Ears: ABSENT: hearing changes Cardiovascular: PRESENT: as per HPI, dyspnea on exertion, edema, orthropnea, palpitations Respiratory: PRESENT: as per HPI. ABSENT: cough, hemoptysis, sputum Gastrointestinal: ABSENT: abdominal pain, constipation, diarrhea, hematemesis, hematochezia, nausea, vomiting Genitourinary: ABSENT: dysuria, hematuria Musculoskeletal: ABSENT: joint swelling Integumentary: ABSENT: rash, wounds Neurological: ABSENT: abnormal gait, abnormal speech, confusion, dizziness, focal weakness, syncope Psychiatric: ABSENT: anxiety, depression, homidical ideation, suicidal ideation Endocrine: ABSENT: cold intolerance, heat intolerance, polydipsia, polyuria Hematologic/Lymphatic: ABSENT: easy bleeding, easy bruising Physical Exam Vital Signs: Temp Pulse Resp BP Pulse Ox 97.5 F 83 20 154/100 H 96 08/03/19 05:54 08/03/19 01:27 08/03/19 06:01 08/03/19 06:01 08/03/19 06:01 Intake & Output 08/01/19 08/02/19 08/03/19 11:59 11:59 11:59 Weight 73.6 kg General appearance: PRESENT: cooperative, mild distress, well-developed, well- nourished Head exam: PRESENT: atraumatic, normocephalic Eye exam: PRESENT: conjunctiva pink, EOMI, PERRLA. ABSENT: scleral icterus Ear exam: PRESENT: normal external ear exam Mouth exam: PRESENT: moist, tongue midline Neck exam: ABSENT: carotid bruit, JVD, lymphadenopathy, thyromegaly Respiratory exam: PRESENT: crackles, retraction, tachypnea. ABSENT: rales, rhonchi, wheezes Cardiovascular exam: PRESENT: +S1, +S2, systolic murmur Pulses: PRESENT: normal dorsalis pedis pul Vascular exam: PRESENT: normal capillary refill GI/Abdominal exam: PRESENT: normal bowel sounds, soft. ABSENT: distended, guarding, mass, organolmegaly, rebound, tenderness Rectal exam: PRESENT: deferred Extremities exam: PRESENT: full ROM, +1 edema. ABSENT: calf tenderness, clubbing, pedal edema Neurological exam: PRESENT: alert, awake, oriented to person, oriented to place, oriented to time, oriented to situation, CN II-XII grossly intact. ABSENT: motor sensory deficit Psychiatric exam: PRESENT: appropriate affect, normal mood. ABSENT: homicidal ideation, suicidal ideation Skin exam: PRESENT: dry, intact, warm. ABSENT: cyanosis, rash Results Laboratory Results: 08/03/19 01:45 08/03/19 01:45 08/03/19 08/03/19 01:45 01:45 WBC 6.2 RBC 4.24 Hgb 12.3 Hct 36.2 MCV 85 MCH 29.0 MCHC 34.0 RDW 13.5 Plt Count 239 Seg Neutrophils % 70.1 Sodium 131.6 L Potassium 4.0 Chloride 98 Carbon Dioxide 25 Anion Gap 9 BUN 22 H Creatinine 0.72 Est GFR ( Amer) > 60 Glucose 142 H Calcium 8.9 Total Bilirubin 0.6 AST 98 H Alkaline Phosphatase 99 Total Protein 6.3 Albumin 3.5 08/03/19 08/03/19 01:45 01:45 Troponin I 0.018 NT-Pro-B Natriuret Pep 30545 H Impressions: Chest X-Ray 08/03/19 01:24 IMPRESSION: No convincing pneumonia. 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 Follow-up magnesium, (2) Sleep apnea Is this a current diagnosis for this admission?: Yes Plan: Education and BiPAP (3) Congestive heart failure Qualifiers: Heart failure type: unspecified Heart failure chronicity: acute Qualified Code(s): I50.9 - Heart failure, unspecified Is this a current diagnosis for this admission?: Yes Plan: Likely diastolic complicated by sleep apnea and BiPAP noncompliance. Follow-up 2D echo, optimize volume status with diuresis and education. (4) Dyspnea on exertion Is this a current diagnosis for this admission?: Yes Plan: Secondary to acute diastolic heart failure, optimize volume, blood pressure and heart rate, follow-up chemistry (5) Cardiac murmur Is this a current diagnosis for this admission?: Yes Plan: Follow-up 2D echo - Time Time Spent with patient: 25-34 minutes - Inpatient Certification Medical Necessity: Need Close Monitoring Due to Risk of Patient Decompensation
[2019-08-03 06:26] LABS: APPEARANCE,URINE SLIGHTLY-CLOUDY; BILIRUBIN,URINE NEGATIVE (NEGATIVE); COLOR,URINE YELLOW; GLUCOSE, URINE NEGATIVE (NEGATIVE); KETONES,URINE NEGATIVE (NEGATIVE); LEUKOCYTE ESTERASE,URINE NEGATIVE (NEGATIVE); NITRITE,URINE NEGATIVE (NEGATIVE); PROTEIN,URINE NEGATIVE (NEGATIVE); URINE SPECIFIC GRAVITY 1.025; UROBILINOGEN,URINE NEGATIVE mg/dL (<2.0)
[2019-08-03] MEDS: POTASSIUM CHLORIDE 10 MEQ TABLET.ER PO SCH ×2 (11:14→21:31)
[2019-08-03] MEDS: DOCUSATE SODIUM 100 MG CAPSULE PO SCH (11:14)
[2019-08-03] MEDS: FUROSEMIDE INJ/PF 20 MG/2 ML SDV IV SCH ×2 (11:14→21:31)
[2019-08-03] MEDS: CARVEDILOL 3.125 MG TABLET PO SCH ×2 (11:14→21:31)
[2019-08-03] MEDS: LISINOPRIL 5 MG TABLET PO SCH (11:14)
[2019-08-03] MEDS: HEPARIN SOD (PORCINE) 5,000 UNIT/ML 1 ML VIAL SUBCUT SCH ×2 (13:06→21:31)
[2019-08-03] MEDS: ACETAMINOPHEN 325 MG TABLET PO PRN ×2 (13:06→21:32)
--- NOTE | 2019-08-03 17:27 | EKG REPORT ---
SEVERITY:- ABNORMAL ECG - SINUS RHYTHM PROLONGED QT INTERVAL : Confirmed by: Mirna Capellan MD 03-Aug-2019 17:26:31
--- NOTE | 2019-08-03 18:34 | XCELERA REPORT ---
[address] [address] Transthoracic Echocardiogram Report Name: MARIALUISA COMER Age: 79 yrs Gender: Female : 1940 Patient Status: Inpatient Patient Location: [place] [address]^A Study Date: 08/03/2019 10:22 AM Height: 63 in Weight: 162 lb BSA: 1.8 m2 Procedure: A two-dimensional transthoracic echocardiogram with color flow and Doppler was performed. Study Quality: Fair. Reason For Study: systolic murmur Ordering Physician: MARKUS ANDRADE Performed By: Lina Jensen Interpretation Summary The left ventricle is mildly dilated. There is normal left ventricular wall thickness. LV EF is 25% TO 30% Left ventricular systolic function is severely reduced. Doppler measurements suggest impaired left ventricular relaxation, which is associated with grade I/IV or mild diastolic dysfunction By tissue dopplers There is severe global hypokinesis of the left ventricle. There is no thrombus. No ASD ,VSD ,or PFO seen. The right ventricle is mild to moderately dilated. The right atrium is mildly dilated. The left atrium is mildly dilated. There is no evidence of mitral valve prolapse. There is mild to moderate mitral leaflet calcification. There is no vegetation seen on the mitral valve. There is no mitral valve stenosis. There is a moderate to severe amount of mitral regurgitation There is no aortic valvular vegetation. There is aortic sclerosis without aortic stenosis. There is no LVOT obstruction. There is a mild amount of aortic regurgitation There is a mild amount of tricuspid regurgitation There is servere pulmonary hypertension by echo RVSP is at least 79 mm of Hg , with at least RA mean of 20. There is no pulmonic valvular stenosis. There is a mild amount of pulmonic regurgitation The aortic root is normal size. The inferior vena cava appeared dilated and did not change with respiration (RAP > 20 mmHg) There is no pericardial effusion. MMode/2D Measurements & Calculations RVDd: 2.7 cm LVIDd: 5.4 cm FS: 18.2 % Ao root diam: 2.7 cm IVSd: 1.3 cm LVIDs: 4.4 cm EDV(Teich): 143.5 ml Ao root area: 5.7 cm2 LVPWd: 1.0 cm ESV(Teich): 89.9 ml EF(Teich): 37.4 % Doppler Measurements & Calculations MV E max nabeel: MV dec slope: Ao V2 max: AI max nabeel: 169.6 cm/sec 1111 cm/sec2 137.8 cm/sec 422.1 cm/sec MV A max nabeel: MV dec time: Ao max PG: AI max P.3 mmHg 111.4 cm/sec 0.15 sec 7.6 mmHg AI dec slope: MV E/A: 1.5 345.7 cm/sec2 AI P1/2t: 357.6 msec LV V1 max PG: MR max nabeel: PA V2 max: PI end-d nabeel: 4.4 mmHg 537.5 cm/sec 52.3 cm/sec 207.6 cm/sec LV V1 max: MR max PG: PA max P.4 cm/sec 115.6 mmHg 1.1 mmHg TR max nabeel: 383.0 cm/sec TR max P.7 mmHg Left Ventricle The left ventricle is mildly dilated. There is normal left ventricular wall thickness. LV EF is 25% TO 30%. Left ventricular systolic function is severely reduced. Doppler measurements suggest impaired left ventricular relaxation, which is associated with grade I/IV or mild diastolic dysfunction. By tissue dopplers. There is severe global hypokinesis of the left ventricle. There is no thrombus. No ASD ,VSD ,or PFO seen. Right Ventricle The right ventricle is mild to moderately dilated. The right ventricle is not well visualized secondary to technical limitations. The right ventricular systolic function is mildly reduced. Atria The right atrium is mildly dilated. The left atrium is mildly dilated. Mitral Valve There is mild to moderate mitral leaflet calcification. There is no evidence of mitral valve prolapse. There is no vegetation seen on the mitral valve. There is no mitral valve stenosis. There is a moderate to severe amount of mitral regurgitation. Aortic Valve There is no aortic valvular vegetation. There is aortic sclerosis without aortic stenosis. There is no LVOT obstruction. There is a mild amount of aortic regurgitation. Tricuspid Valve There is no tricuspid stenosis. There is a mild amount of tricuspid regurgitation. There is servere pulmonary hypertension by echo. RVSP is at least 79 mm of Hg , with at least RA mean of 20. Pulmonic Valve There is no pulmonic valvular stenosis. There is a mild amount of pulmonic regurgitation. Great Vessels The aortic root is normal size. The inferior vena cava appeared dilated and did not change with respiration (RAP > 20 mmHg). Effusions There is no pericardial effusion. : MARKUS ANDRADE Lakshmi
--- NOTE | 2019-08-03 19:42 | Progress Note ---
Provider Note Provider Note: The patient is an 79-year-old female with past medical history of hypertension, sleep apnea, breast cancer admitted at approximately 0600 this morning by the Trauma Surgeon. Nursing notes, vital signs, laboratory results, imaging report, echocardiogram, and orders reviewed. Agree with the plan of care as established by the previous provider. We will plan on consulting cardiology tomorrow morning for LVEF 20%.
[2019-08-04] MEDS: HEPARIN SOD (PORCINE) 5,000 UNIT/ML 1 ML VIAL SUBCUT SCH ×3 (05:29→22:05)
[2019-08-04 06:21] LABS: ANION GAP 11 (5-19); BLOOD UREA NITROGEN 23 mg/dL (7-20); CALCIUM 9.1 mg/dL (8.4-10.2); CARBON DIOXIDE 27 mmol/L (22-30); CHLORIDE 92 mmol/L (98-107); CHOLESTEROL 180.71 mg/dL (0-200); GLUCOSE 141 mg/dL (75-110); POTASSIUM 4.4 mmol/L (3.6-5.0); TRIGLYCERIDES 180 mg/dL (<150)
[2019-08-04 06:31] LABS: DIRECT LDL 122 mg/dL (<100)
[2019-08-04] MEDS: LISINOPRIL 5 MG TABLET PO SCH (09:47)
[2019-08-04] MEDS: DOCUSATE SODIUM 100 MG CAPSULE PO SCH (09:47)
[2019-08-04] MEDS: CARVEDILOL 3.125 MG TABLET PO SCH ×2 (09:47→22:04)
[2019-08-04] MEDS: POTASSIUM CHLORIDE 10 MEQ TABLET.ER PO SCH ×2 (09:47→22:04)
[2019-08-04] MEDS: LOSARTAN POTASSIUM 25 MG TABLET PO SCH ×2 (09:48→22:04)
[2019-08-04] MEDS: FUROSEMIDE INJ/PF 20 MG/2 ML SDV IV SCH ×2 (09:50→22:05)
--- NOTE | 2019-08-04 16:48 | PDOC CONSULTATION ---
Consultation Consult Date: 08/04/19 Attending physician:: MARKUS ANDRADE Provider Consulted: HILLARY MOREL Consult reason:: Congestive heart failure History of Present Illness Admission Date/PCP: 08/03/19 05:55 ISMAEL DE LA ROSA MD Patient complains of: Dyspnea History of Present Illness: MARIALUISA COMER is a 79 year old female Who denies previous medical problems. Apparently she was prescribed therapy for systemic hypertension and dyslipidemia and diabetes mellitus but never took these medications. She was recently evaluated by primary care physician Dr. De La Rosa for respiratory symptoms primarily dyspnea and was prescribed a diuretic. She actually felt worse and sought medical attention here. Since admission to the hospital she was found to be in acute decompensated congestive heart failure and has responded appropriately with intravenous diuretic therapy. No prior mention of cardiomyopathy Patient reports history of breast cancer with lumpectomy, chemotherapy as well as radiation and is in remission. No port was placed. This was a right-sided lesion. There is no prior mention of any cardiac problem. A stress test done ap proximately 3 years ago was negative per patient and family. There is no familial illnesses reported. There is no family history of sudden cardiac . Patient has never smoked cigarettes. Does not use alcohol. Past Medical History Cardiac Medical History: Reports: Hypertension Denies: Coronary Artery Disease, Myocardial Infarction Pulmonary Medical History: Reports: Sleep Apnea - Has been states she has frequent apneic spells at night no formal workup do Denies: Asthma, Bronchitis, Chronic Obstructive Pulmonary Disease (COPD), Pneumonia Neurological Medical History: Denies: Seizures Endocrine Medical History: Reports: Diabetes Mellitus Type 2 Malignancy Medical History: Reports: Breast Cancer Musculoskeltal Medical History: Denies: Arthritis Hematology: Denies: Anemia Past Surgical History Past Surgical History: Reports: Mastectomy - Right breast lumpectomy, Other - Colonoscopy 2017, exploratory laparotomy with resection tumor Social History Lives with: Family Smoking Status: Never Smoker Electronic Cigarette use?: No Frequency of Alcohol Use: Occasional Hx Recreational Drug Use: No Drugs: None Hx Prescription Drug Abuse: No - Advance Directive Resuscitation Status: Full Code Family History Family History: Hypertension - Other, Malignancy - Paternal grandmother Parental Family History Reviewed: No - No family history of sudden cardiac or arrhythmia. Children Family History Reviewed: Yes Sibling(s) Family History Reviewed.: Yes Medication/Allergy Home Medications: Carvedilol [Coreg] 25 tab PO Q12 08/03/19 Furosemide [Lasix 20 mg Tablet] 20 mg PO QHS 08/03/19 Losartan Potassium [Cozaar 25 mg Tablet] 50 mg PO BID 08/03/19 Allergies/Adverse Reactions: No Known Allergies Allergy (Verified 03/06/18 03:07) Physical Exam Vital Signs: Temp Pulse Resp BP Pulse Ox 97.6 F 74 20 138/78 H 100 08/04/19 08:01 08/04/19 11:37 08/04/19 11:37 08/04/19 11:37 08/04/19 11:37 Intake & Output 08/03/19 08/04/19 08/05/19 06:59 06:59 06:59 Intake Total 640 Balance 640 Weight 73.6 kg 69.6 kg General appearance: PRESENT: no acute distress, cooperative, well-developed Head exam: PRESENT: atraumatic, normocephalic Eye exam: PRESENT: conjunctiva pink, EOMI Mouth exam: PRESENT: moist Respiratory exam: PRESENT: crackles, decreased breath sounds, symmetrical, unlabored Cardiovascular exam: PRESENT: RRR, +S1, +S2 Pulses: PRESENT: normal radial pulses GI/Abdominal exam: PRESENT: soft Rectal exam: PRESENT: deferred Musculoskeletal exam: PRESENT: ambulatory, normal inspection Neurological exam: PRESENT: alert, awake, oriented to person, oriented to place Psychiatric exam: PRESENT: appropriate affect Skin exam: PRESENT: dry, intact, normal color Results Laboratory Results: 08/03/19 01:45 08/04/19 05:28 08/04/19 05:28 Sodium 130.1 L Potassium 4.4 Chloride 92 L Carbon Dioxide 27 Anion Gap 11 BUN 23 H Creatinine 0.77 Est GFR ( Amer) > 60 Glucose 141 H Calcium 9.1 Triglycerides 180 H Cholesterol 180.71 LDL Cholesterol Direct 122 H VLDL Cholesterol 36.0 H HDL Cholesterol 42 08/03/19 08/03/19 08/03/19 01:45 01:45 06:47 Troponin I 0.018 0.018 NT-Pro-B Natriuret Pep 60948 H EKG Comments: Twelve-lead EKG 08/03/2019 Independently viewed by me. Sinus rhythm, 82 bpm, QTC is prolonged at 540 ms, normal AV conduction, Transthoracic echocardiogram 08/03/2019 Left ventricular ejection fraction estimated at 25 to 30%. Mild to moderate mo derate to severe mitral regurgitation is reported. Mild aortic insufficiency and mild tricuspid regurgitation. Severe pulmonary hypertension by echo Telemetry shows sinus rhythm at 68 bpm Impressions: Chest X-Ray 08/03/19 01:24 IMPRESSION: No convincing pneumonia. Status: Image reviewed by me - Pulmonary vascular congestion is noted Assessment & Plan - Diagnosis (1) Acute congestive heart failure Qualifiers: Heart failure type: combined systolic and diastolic Qualified Code(s): I50.41 - Acute combined systolic (congestive) and diastolic (congestive) heart failure Is this a current diagnosis for this admission?: Yes Plan: Presentation with acute decompensated congestive heart failure systolic. NYHA class II symptoms Agree with present therapy which includes diuretics, ARB and beta-blaine Since this is a new diagnosis for this patient and recent myocardial perfusion imaging study was apparently negative patient would likely benefit from invasive assessment of coronaries by cardiac catheterization to exclude coronary artery disease as etiology for cardiomyopathy I discussed this with the patient and this can be arranged as an outpatient Meanwhile continue diuresis. Emphasize medication compliance. (2) Long QT interval Is this a current diagnosis for this admission?: Yes Plan: Multiple EKGs show prolonged QT interval. 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 No family history reported either. Avoid QTC prolonging drugs.
--- NOTE | 2019-08-04 19:10 | PDOC PROGRESS REPORT ---
Subjective Progress Note for:: 08/04/19 Subjective:: Patient is an 79-year-old female with past medical history of hypertension, hyperlipidemia, DM, and remote breast cancer who was admitted 08/03/2019 with new diagnosis of decompensated CHF. Patient was seen on morning rounds with her present. She was found s itting up to the recliner, comfortably on supplemental oxygen via nasal cannula; she is not home O2 dependent. Patient reports that she is feeling significantly better today with decreased dyspnea, cough, and pedal edema. She does continue to feel fatigue and slight shortness of breath when ambulating to the restroom. Overall, much improved. She denies fever, chest pain, palpitations, orthopnea, abdominal pain, nausea vomiting diarrhea. He has no questions or concerns at this time. No concerns per nursing. Reason For Visit: LONG QT WITH HEART FAILURE Physical Exam Vital Signs: Temp Pulse Resp BP Pulse Ox 97.6 F 74 20 138/78 H 100 08/04/19 08:01 08/04/19 11:37 08/04/19 11:37 08/04/19 11:37 08/04/19 11:37 Intake & Output 08/03/19 08/04/19 08/05/19 06:59 06:59 06:59 Intake Total 640 Balance 640 Weight 73.6 kg 69.6 kg General appearance: PRESENT: no acute distress, cooperative, well-developed, well-nourished Head exam: PRESENT: atraumatic, normocephalic Eye exam: PRESENT: conjunctiva pink, EOMI, PERRLA. ABSENT: scleral icterus Mouth exam: PRESENT: moist, tongue midline Neck exam: ABSENT: carotid bruit, JVD, lymphadenopathy, thyromegaly Respiratory exam: PRESENT: crackles, symmetrical, unlabored, other - Supplemental oxygen by nasal cannula. ABSENT: rales, rhonchi, wheezes Cardiovascular exam: PRESENT: RRR, +S1, +S2, systolic murmur. ABSENT: diastolic murmur, rubs Pulses: PRESENT: normal dorsalis pedis pul Vascular exam: PRESENT: normal capillary refill GI/Abdominal exam: PRESENT: normal bowel sounds, soft. ABSENT: distended, guarding, mass, organolmegaly, rebound, tenderness Rectal exam: PRESENT: deferred Extremities exam: PRESENT: full ROM, +1 edema - BLE. ABSENT: calf tenderness, clubbing, pedal edema Neurological exam: PRESENT: alert, awake, oriented to person, oriented to place, oriented to time, oriented to situation, CN II-XII grossly intact. ABSENT: motor sensory deficit Psychiatric exam: PRESENT: appropriate affect, normal mood. ABSENT: homicidal ideation, suicidal ideation Skin exam: PRESENT: dry, intact, warm. ABSENT: cyanosis, rash Results Laboratory Results: 08/03/19 01:45 08/04/19 05:28 08/04/19 05:28 Sodium 130.1 L Potassium 4.4 Chloride 92 L Carbon Dioxide 27 Anion Gap 11 BUN 23 H Creatinine 0.77 Est GFR ( Amer) > 60 Glucose 141 H Calcium 9.1 Triglycerides 180 H Cholesterol 180.71 LDL Cholesterol Direct 122 H VLDL Cholesterol 36.0 H HDL Cholesterol 42 08/03/19 08/03/19 08/03/19 01:45 01:45 06:47 Troponin I 0.018 0.018 NT-Pro-B Natriuret Pep 38367 H Impressions: Chest X-Ray 08/03/19 01:24 IMPRESSION: No convincing pneumonia. Assessment and Plan - Diagnosis (1) Congestive heart failure Qualifiers: Heart failure type: systolic Heart failure chronicity: acute Qualified Code(s): I50.21 - Acute systolic (congestive) heart failure Is this a current diagnosis for this admission?: Yes Plan: Patient is admitted to medical floor on continuous cardiac telemetry. NYHA class II symptoms. Cardiology is consulted; appreciate Dr. Arce's assistance. Continues on carvedilol, losartan, and IV furosemide for diuresis. Cardiac diet. Patient education. Daily weights and strict I&O's. Follow-up with Dr. Arce as an outpatient for outpatient cardiac ca theterization. (2) Dyspnea on exertion Is this a current diagnosis for this admission?: Yes Plan: Improved; decreased oxygen requirement. Secondary to #1. Evaluation management as above. 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 Follow-up magnesium, (4) Sleep apnea Is this a current diagnosis for this admission?: Yes Plan: Education and BiPAP (5) Cardiac murmur Is this a current diagnosis for this admission?: Yes Plan: Echocardiogram shows moderate to severe mitral regurgitation Cardiology is consulted; appreciate Dr. Arce's assistance. (6) Hyperlipidemia Is this a current diagnosis for this admission?: Yes Plan: Lipid panel shows triglycerides 180, LDL 142, HDL 42, total cholesterol 180. Cardiac diet. Low-dose atorvastatin. - Time Time Spent with patient: 35 or more minutes Medications reviewed and adjusted accordingly: Yes Anticipated discharge: Home Within: within 48 hours
[2019-08-04] MEDS ORDERED: ATORVASTATIN CALCIUM 20 MG TABLET PO SCH (22:00)
[2019-08-05] MEDS: HEPARIN SOD (PORCINE) 5,000 UNIT/ML 1 ML VIAL SUBCUT SCH (05:57)
[2019-08-05 08:35] LABS: ANION GAP 10 (5-19); BLOOD UREA NITROGEN 20 mg/dL (7-20); CALCIUM 9.5 mg/dL (8.4-10.2); CARBON DIOXIDE 29 mmol/L (22-30); CHLORIDE 95 mmol/L (98-107); GLUCOSE 120 mg/dL (75-110); POTASSIUM 4.5 mmol/L (3.6-5.0)
[2019-08-05] MEDS: FUROSEMIDE INJ/PF 20 MG/2 ML SDV IV SCH (10:38)
[2019-08-05] MEDS: DOCUSATE SODIUM 100 MG CAPSULE PO SCH (10:38)
[2019-08-05] MEDS: POTASSIUM CHLORIDE 10 MEQ TABLET.ER PO SCH (10:38)
[2019-08-05] MEDS: LOSARTAN POTASSIUM 25 MG TABLET PO SCH (10:39)
[2019-08-05] MEDS: CARVEDILOL 3.125 MG TABLET PO SCH (10:39)
--- NOTE | 2019-08-05 11:02 | PDOC PROGRESS REPORT ---
Subjective Progress Note for:: 08/05/19 Subjective:: Patient seen and examined. Reports that she feels much better. at bedside. No complaints reported. Nurse mentions no episodes of complaints. Reason For Visit: LONG QT WITH HEART FAILURE Physical Exam Vital Signs: Temp Pulse Resp BP Pulse Ox 97.7 F 76 19 139/94 H 100 08/05/19 07:40 08/05/19 07:40 08/05/19 07:40 08/05/19 07:40 08/05/19 07:40 Intake & Output 08/04/19 08/05/19 08/06/19 06:59 06:59 06:59 Intake Total 640 390 Output Total 1600 Balance 640 -1210 Weight 69.6 kg 70.3 kg General appearance: PRESENT: no acute distress, cooperative, well-developed Head exam: PRESENT: atraumatic, normocephalic Eye exam: PRESENT: conjunctiva pink Respiratory exam: PRESENT: clear to auscultation hellen, symmetrical, unlabored Cardiovascular exam: PRESENT: RRR, +S1, +S2 Pulses: PRESENT: normal radial pulses GI/Abdominal exam: PRESENT: soft Rectal exam: PRESENT: deferred Musculoskeletal exam: PRESENT: normal inspection Neurological exam: PRESENT: alert, awake, oriented to person, oriented to place, oriented to time, oriented to situation Psychiatric exam: PRESENT: appropriate affect Skin exam: PRESENT: dry, intact, normal color Results Laboratory Results: 08/03/19 01:45 08/05/19 07:21 08/05/19 07:21 Sodium 134.0 L Potassium 4.5 Chloride 95 L Carbon Dioxide 29 Anion Gap 10 BUN 20 Creatinine 0.79 Est GFR ( Amer) > 60 Glucose 120 H Calcium 9.5 08/03/19 08/03/19 08/03/19 01:45 01:45 06:47 Troponin I 0.018 0.018 NT-Pro-B Natriuret Pep 11056 H Impressions: Chest X-Ray 08/03/19 01:24 IMPRESSION: No convincing pneumonia. Assessment & Plan - Diagnosis (1) Acute congestive heart failure Qualifiers: Heart failure type: combined systolic and diastolic Qualified Code(s): I50.41 - Acute combined systolic (congestive) and diastolic (congestive) heart failure Is this a current diagnosis for this admission?: Yes Plan: Acute decompensated systolic congestive heart failure-NYHA class II symptoms Echocardiogram confirms the presence of severe LV dysfunction with ejection fraction estimated at 20 to 25% which is a new finding for this patient. Patient is approaching euvolemia. She has been started on guideline directed medical therapy with oral medications for congestive heart failure and dilated cardiomyopathy Given the fact that recent stress testing was negative for ischemia we will pursue outpatient cardiac catheterization to make sure there is no obstructive coronary artery disease. This can be arranged as an outpatient. (2) Long QT interval Is this a current diagnosis for this admission?: Yes Plan: Avoid QT prolonging drugs.
[2019-08-05 11:25] VITALS: BP 151/63
--- NOTE | 2019-08-06 17:31 | PDOC DISCHARGE SUMMARY ---
Impression - Admit/DC Date/PCP Admission Date/Primary Care Provider: 08/03/19 05:55 ISMAEL DE LA ROSA MD Discharge Date: 08/05/19 - Discharge Diagnosis (1) Congestive heart failure Is this a current diagnosis for this admission?: Yes (2) Dyspnea on exertion Is this a current diagnosis for this admission?: Yes (3) Long QT interval Is this a current diagnosis for this admission?: Yes (4) Sleep apnea Is this a current diagnosis for this admission?: Yes (5) Cardiac murmur Is this a current diagnosis for this admission?: Yes (6) Hyperlipidemia Is this a current diagnosis for this admission?: Yes - Additional Information Resuscitation Status: Full Code Discharge Diet: Cardiac Discharge Activity: Activity As Tolerated, Balance Activity w/Rest, Weigh Daily Referrals: HILLARY MOREL MD [ACTIVE STAFF] - 08/11/19 12:30 pm (Follow up as scheduled on .) ISMAEL DE LA ROSA MD [Primary Care Provider] - 08/15/19 10:00 am (Follow up within 1 week.) Prescriptions: Carvedilol [Coreg 3.125 mg Tablet] 3.125 mg PO Q12 #60 tablet Furosemide [Lasix 20 mg Tablet] 20 mg PO QAM #30 Atorvastatin Calcium [Lipitor 20 mg Tablet] 20 mg PO QHS #30 tablet Home Medications: Losartan Potassium [Cozaar 25 mg Tablet] 50 mg PO BID 08/03/19 Acetaminophen [Tylenol 325 mg Tablet] 650 mg PO Q4HP PRN tablet 08/05/19 Atorvastatin Calcium [Lipitor 20 mg Tablet] 20 mg PO QHS #30 tablet 08/05/19 Carvedilol [Coreg 3.125 mg Tablet] 3.125 mg PO Q12 #60 tablet 08/05/19 Furosemide [Lasix 20 mg Tablet] 20 mg PO QAM #30 08/05/19 History of Present Illiness History of Present Illness: Per H&P by Dr. Ribera: MARIALUISA COMER is a 79 year old female with a past medical history of hypertension, sleep apnea, status post breast cancer with chemoradiation 20 years ago. She presents with 1 week of exertional shortness of breath denying chest pain nausea vomiting but admits to palpitations. Prompting her to seek evaluation at primary care Dr. De La Rosa prescribing a water pill without significant improvement she is prompted to seek evaluation the emergency department where she is found to have a long QT interval unchanged from previous EKG chest x-ray showing pulmonary vascular congestion and a BNP of 10,000. She receives IV Lasix, supplemental oxygen and referred to the hospitalist for admission. She denies recent change in medications with exception to above denying regular NSAIDs, change of weight, heat or cold intolerance. She does admits to insomnia and BiPAP noncompliance. Hospital Course Hospital Course: (1) Congestive heart failure Patient was admitted to medical floor on continuous cardiac telemetry. NYHA class II symptoms. Echo revealed LVEF 25-30%, mild diastolic dysfunction, and severe pulmonary hypertension. Cardiology was consulted; appreciate Dr. oMrel's evaluation and recommendations. Patient to follow up in the office next week to make arrangements for cardiac cath. Received IV furosemide for diuresis with appropriate response. She is discharged on carvedilol, losartan, and furosemide. She met with the airline operations agent and patient educator prior to discahrge. (2) Dyspnea on exertion Improved; decreased oxygen requirement. Secondary to #1. Evaluation management as above. 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 Recommend avoiding prolonging agents. (4) Sleep apnea Recommend formal outpatient sleep study. (5) Cardiac murmur Echocardiogram shows moderate to severe mitral regurgitation Patient's firearms sales associate, Dr. Morel, was consulted; to follow up next week as scheduled. (6) Hyperlipidemia Lipid panel shows triglycerides 180, LDL 142, HDL 42, total cholesterol 180. Cardiac diet. She is prescribed low-dose atorvastatin. Physical Exam Vital Signs: Temp Pulse Resp BP Pulse Ox 97.7 F 76 19 151/63 H 100 08/05/19 11:23 08/05/19 11:23 08/05/19 11:23 08/05/19 11:23 08/05/19 11:23 Intake & Output 08/05/19 08/06/19 08/07/19 06:59 06:59 06:59 Intake Total 390 Output Total 1600 Balance -1210 Weight 70.3 kg General appearance: PRESENT: no acute distress, cooperative, well-developed, well-nourished Head exam: PRESENT: atraumatic, normocephalic Eye exam: PRESENT: conjunctiva pink, EOMI, PERRLA. ABSENT: scleral icterus Ear exam: PRESENT: normal external ear exam Mouth exam: PRESENT: moist, tongue midline Respiratory exam: PRESENT: clear to auscultation hellen, symmetrical, unlabored. ABSENT: rales, rhonchi, wheezes Cardiovascular exam: PRESENT: RRR, +S1, +S2. ABSENT: diastolic murmur, rubs, systolic murmur Pulses: PRESENT: normal dorsalis pedis pul Vascular exam: PRESENT: normal capillary refill GI/Abdominal exam: PRESENT: normal bowel sounds, soft. ABSENT: distended, guarding, mass, organolmegaly, rebound, tenderness Rectal exam: PRESENT: deferred Extremities exam: PRESENT: full ROM, pedal edema - trace bilaterally. ABSENT: calf tenderness, clubbing Musculoskeletal exam: PRESENT: ambulatory - on room air Neurological exam: PRESENT: alert, awake, oriented to person, oriented to place, oriented to time, oriented to situation, CN II-XII grossly intact. ABSENT: motor sensory deficit Psychiatric exam: PRESENT: appropriate affect, normal mood. ABSENT: homicidal ideation, suicidal ideation Skin exam: PRESENT: dry, intact, warm. ABSENT: cyanosis, rash Results Laboratory Results: WBC 6.2 10^3/uL (4.0-10.5) 08/03/19 01:45 RBC 4.24 10^6/uL (3.72-5.28) 08/03/19 01:45 Hgb 12.3 g/dL (12.0-15.5) 08/03/19 01:45 Hct 36.2 % (36.0-47.0) 08/03/19 01:45 MCV 85 fl (80-97) 08/03/19 01:45 MCH 29.0 pg (27.0-33.4) 08/03/19 01:45 MCHC 34.0 g/dL (32.0-36.0) 08/03/19 01:45 RDW 13.5 % (11.5-14.0) 08/03/19 01:45 Plt Count 239 10^3/uL (150-450) 08/03/19 01:45 Lymph % (Auto) 19.7 % (13-45) 08/03/19 01:45 [place] % (Auto) 8.4 % (3-13) 08/03/19 01:45 Eos % (Auto) 1.2 % (0-6) 08/03/19 01:45 Baso % (Auto) 0.6 % (0-2) 08/03/19 01:45 Absolute Neuts (auto) 4.4 10^3/uL (1.7-8.2) 08/03/19 01:45 Absolute Lymphs (auto) 1.2 10^3/uL (0.5-4.7) 08/03/19 01:45 Absolute Monos (auto) 0.5 10^3/uL (0.1-1.4) 08/03/19 01:45 Absolute Eos (auto) 0.1 10^3/uL (0.0-0.6) 08/03/19 01:45 Absolute Basos (auto) 0.0 10^3/uL (0.0-0.2) 08/03/19 01:45 Seg Neutrophils % 70.1 % (42-78) 08/03/19 01:45 Sodium 134.0 mmol/L (137-145) L 08/05/19 07:21 Potassium 4.5 mmol/L (3.6-5.0) 08/05/19 07:21 Chloride 95 mmol/L (98-107) L 08/05/19 07:21 Carbon Dioxide 29 mmol/L (22-30) 08/05/19 07:21 Anion Gap 10 (5-19) 08/05/19 07:21 BUN 20 mg/dL (7-20) 08/05/19 07:21 Creatinine 0.79 mg/dL (0.52-1.25) 08/05/19 07:21 Est GFR ( Amer) > 60 (>60) 08/05/19 07:21 Est GFR (MDRD) Non-Af > 60 (>60) 08/05/19 07:21 Glucose 120 mg/dL (75-110) H 08/05/19 07:21 Calcium 9.5 mg/dL (8.4-10.2) 08/05/19 07:21 Magnesium 1.8 mg/dL (1.6-2.3) 08/03/19 04:15 Total Bilirubin 0.6 mg/dL (0.2-1.3) 08/03/19 01:45 Direct Bilirubin 0.0 mg/dL (0.0-0.4) 08/03/19 01:45 Neonat Total Bilirubin Not Reportable 08/03/19 01:45 Neonat Direct Bilirubin Not Reportable 08/03/19 01:45 Neonat Indirect Bili Not Reportable 08/03/19 01:45 AST 98 U/L (14-36) H 08/03/19 01:45 ALT 96 U/L (<35) H 08/03/19 01:45 Alkaline Phosphatase 99 U/L (38-126) 08/03/19 01:45 Troponin I 0.018 ng/mL 08/03/19 06:47 NT-Pro-B Natriuret Pep 07840 pg/mL (<450) H 08/03/19 01:45 Total Protein 6.3 g/dL (6.3-8.2) 08/03/19 01:45 Albumin 3.5 g/dL (3.5-5.0) 08/03/19 01:45 Triglycerides 180 mg/dL (<150) H 08/04/19 05:28 Cholesterol 180.71 mg/dL (0-200) 08/04/19 05:28 LDL Cholesterol Direct 122 mg/dL (<100) H 08/04/19 05:28 VLDL Cholesterol 36.0 mg/dL (10-31) H 08/04/19 05:28 HDL Cholesterol 42 mg/dL (>40) 08/04/19 05:28 TSH 1.56 uIU/mL (0.47-4.68) 08/03/19 01:45 Urine Color YELLOW 08/03/19 05:42 Urine Appearance SLIGHTLY-CLOUDY 08/03/19 05:42 Urine pH 5.0 (5.0-9.0) 08/03/19 05:42 Ur Specific [place] 1.025 08/03/19 05:42 Urine Protein NEGATIVE mg/dL (NEGATIVE) 08/03/19 05:42 Urine Glucose (UA) NEGATIVE mg/dL (NEGATIVE) 08/03/19 05:42 Urine Ketones NEGATIVE mg/dL (NEGATIVE) 08/03/19 05:42 Urine Blood NEGATIVE (NEGATIVE) 08/03/19 05:42 Urine Nitrite NEGATIVE (NEGATIVE) 08/03/19 05:42 Urine Bilirubin NEGATIVE (NEGATIVE) 08/03/19 05:42 Urine Urobilinogen NEGATIVE mg/dL (<2.0) 08/03/19 05:42 Ur Leukocyte Esterase NEGATIVE (NEGATIVE) 08/03/19 05:42 Urine WBC (Auto) 2 /HPF 08/03/19 05:42 Urine RBC (Auto) 1 /HPF 08/03/19 05:42 Squamous Epi Cells Auto 5 /HPF 08/03/19 05:42 Urine Mucus (Auto) FEW /LPF 08/03/19 05:42 Urine Ascorbic Acid NEGATIVE (NEGATIVE) 08/03/19 05:42 08/03/19 08/03/19 08/03/19 01:45 01:45 06:47 Troponin I 0.018 0.018 NT-Pro-B Natriuret Pep [id number] H Impressions: Chest X-Ray 08/03/19 01:24 IMPRESSION: No convincing pneumonia. Plan Plan of Treatment: Patient was discharged home in stable condition. She was instructed to follow up with her PCP and National Facilities Manager as scheduled. Take medications as prescribed. Eat a low sodium diet. Weigh daily and report any weight gain >2 lbs overnight to provider. Return to the emergency department as needed for concerning symptoms. Time Spent: Greater than 30 Minutes Stroke Is this a Stroke Patient?: No Acute Heart Failure - Is this a Heart Failure Patient?: Yes Documentation of LVEF assessment?: Yes LVEF < 40%?: Yes-if yes answer questions a through e a) Discharged on ACEI?: N/A Discharged on ARB b) Discharges on ARB?: Yes c) Discharged on ARNI?: No-Document Contraindications Reason(s) not discharged on ARNI: New onset heart failure d) Discharged on evidence-based Beta blaine(carvedilol, sustained release metoprolol succinate, or bisoprolol)?: Yes e) For LVEF <35%, discharged on Aldosterone antagonist?: No-document contraincations Reason(s) not discharged on Aldosterone antagonist for LVEF < 35%: Other - medications per cardiology 3. Anticoagulant therapy for permanect/persistent/paraoxysmal Afib or Aflutter: N/A
== END 2019-08-05 12:32 | disposition home or self-care (01) ==
LOC: ER 01:09 → INTOOBSV 05:55 → EH 05:55 → 4S 14:35
PROVIDERS: ADMIT Internal Medicine; ATTEND Internal Medicine
DX: I11.0 Hypertensive heart disease with heart failure (principal); I50.41 Acute combined systolic (congestive) and diastolic (congestive) heart failure; R06.09 Other forms of dyspnea; I45.81 Long QT syndrome; G47.30 Sleep apnea, unspecified; E78.5 Hyperlipidemia, unspecified; G47.00 Insomnia, unspecified; I42.0 Dilated cardiomyopathy; I27.20 Pulmonary hypertension, unspecified; I08.3 Combined rheumatic disorders of mitral, aortic and tricuspid valves; Z92.3 Personal history of irradiation; Z85.3 Personal history of malignant neoplasm of breast; Z92.21 Personal history of antineoplastic chemotherapy; Z79.899 Other long term (current) drug therapy; Z91.19 Patient's noncompliance with other medical treatment and regimen; Z82.49 Family history of ischemic heart disease and other diseases of the circulatory system; R79.89 Other specified abnormal findings of blood chemistry
CPT/HCPCS: 93005; 99285; 96374; 36415 ×3; 83735; 84443; 85025; 80048 ×2; 80053; 81001; 84484; 80061; 83880; 93306; 71045; 93010; G0378 ×4; A9270 ×15; J1644 ×3; J1940 ×3; J3490 ×3

== ENCOUNTER → 2020-01-05 | Outpatient (CLI) | payer MEDICARE, OTHER | LOC: SP 07:28 | PROVIDERS: ATTEND Internal Medicine | DX: I42.0 Dilated cardiomyopathy (principal); I10 Essential (primary) hypertension | CPT/HCPCS: 93306 ==

== ENCOUNTER 2020-03-06 12:57 | Inpatient (IN) | payer MEDICARE, OTHER ==
[2020-03-06 13:48] LABS: ABSOLUTE BASOPHILS # (AUTO) 0.1 10^3/uL (0.0-0.2); ABSOLUTE EOSINOPHILS # (AUTO) 0.1 10^3/uL (0.0-0.6); ABSOLUTE LYMPHOCYTES (AUTO) 1.5 10^3/uL (0.5-4.7); ABSOLUTE MONOCYTES (AUTO) 0.6 10^3/uL (0.1-1.4); ABSOLUTE NEUT (AUTO) 3.5 10^3/uL (1.7-8.2); EOSINOPHILS % (AUTO) 1.4 % (0-6); HEMATOCRIT 35.7 % (36.0-47.0); HEMOGLOBIN 12.2 g/dL (12.0-15.5); LYMPHOCYTES % (AUTO) 25.4 % (13-45); MEAN CORPUSCULAR HEMOGLOBIN 28.2 pg (27.0-33.4); MEAN CORPUSCULAR HGB CONC 34.2 g/dL (32.0-36.0); MEAN CORPUSCULAR VOLUME 83 fl (80-97); MONOCYTES % (AUTO) 10.9 % (3-13); PLATELET COUNT 232 10^3/uL (150-450); RED BLOOD COUNT 4.32 10^6/uL (3.72-5.28); RED CELL DISTRIBUTION WIDTH 15.2 % (11.5-14.0); SEGMENTED NEUTROPHILS % (AUTO) 61.3 % (42-78); TOTAL CELLS COUNTED % (AUTO) 100 %; WHITE BLOOD COUNT 5.7 10^3/uL (4.0-10.5)
--- NOTE | 2020-03-06 13:53 | RADIOLOGY REPORT (SQ) ---
EXAM DESCRIPTION: CT HEAD WITHOUT IMAGES COMPLETED DATE/TIME: 03/06/2020 1:36 pm REASON FOR STUDY: unresponsive COMPARISON: None. TECHNIQUE: Axial images acquired through the brain without intravenous contrast. Images reviewed wi th bone, brain and subdural windows. Additional sagittal and coronal reconstructions were generated. Images stored on PACS. All CT scanners at this facility use dose modulation, iterative reconstruction, and/or weight based d osing when appropriate to reduce radiation dose to as low as reasonably achievable (ALARA). [facility]: Dose Right [facility]: CareDose [facility]: Dose Right [facility]: Teradose 4D [facility]: 3D [employer] RADIATION DOSE: CT Rad equipment meets quality standard of care and radiation dose reduction techniq ues were employed. CTDIvol: 53.2 mGy. DLP: 911 mGy-cm.mGy. LIMITATIONS: None. FINDINGS: VENTRICLES: Prominent. CEREBRUM: No masses. No hemorrhage. No midline shift. Areas of low density in the white matter mos t likely due to chronic micro-vascular ischemic change. No evidence for acute infarction. CEREBELLUM: No masses. No hemorrhage. No alteration of density. No evidence for acute infarction. EXTRAAXIAL SPACES: Age-related involutional change. No fluid collections. No masses. ORBITS AND GLOBE: No intra- or extraconal masses. Normal contour of globe without masses. CALVARIUM: No fracture. PARANASAL SINUSES: Fluid right maxillary sinus. SOFT TISSUES: No mass or hematoma. OTHER: No other significant finding. IMPRESSION: CHRONIC CHANGES OF ATROPHY AND MICROVASCULAR ISCHEMIA. NO ACUTE PROCESS. EVIDENCE OF ACUTE STROKE: NO. TECHNICAL DOCUMENTATION: JOB ID: [id number] Quality ID # [id number]: Final reports with documentation of one or more dose reduction techniques (e.g., Au tomated exposure control, adjustment of the mA and/or kV according to patient size, use of iterative reconstruction technique) 2010 [employer]- All Rights Reserved Reading location - IP/workstation name: [email or web address]
[2020-03-06 14:01] LABS: ALBUMIN 3.6 g/dL (3.5-5.0); ALKALINE PHOSPHATASE 69 U/L (38-126); ANION GAP 10 (5-19); ASPARTATE AMINO TRANSFERASE 24 U/L (14-36); BILIRUBIN,DIRECT 0.3 mg/dL (0.0-0.4); BILIRUBIN,TOTAL 0.7 mg/dL (0.2-1.3); BLOOD UREA NITROGEN 29 mg/dL (7-20); CALCIUM 9.2 mg/dL (8.4-10.2); CARBON DIOXIDE 29 mmol/L (22-30); CHLORIDE 96 mmol/L (98-107); CREATINE KINASE 58 U/L (30-135); GLUCOSE 164 mg/dL (75-110); POTASSIUM 3.9 mmol/L (3.6-5.0); TOTAL PROTEIN 6.1 g/dL (6.3-8.2)
--- NOTE | 2020-03-06 14:09 | ER Document Report ---
ED General - General Chief Complaint: Passed Out Prior to Arrival Stated Complaint: DIZZY/WEAKNESS Time Seen by Provider: 03/06/20 13:22 Primary Care Provider: HILLARY MOREL MD [ACTIVE STAFF] - Follow up as needed TRAVEL OUTSIDE OF THE [place] IN LAST 30 DAYS: No - HPI Notes: Patient is an 79-year-old female who presents to the emergency department for evaluation after syncopal episode. This morning she went with her to [place]. She arrived home at 10 AM. She had not yet taken her morning medications, nor has she had anything to eat. She took her home medications. She had a bowl of cereal and a few cookies. She was sitting outside of the garage with her , she started complaining of a vision change, that lasted a few seconds, that she cannot quantify. At that point she tipped to the side and passed out. Per the her eyes rolled back in her head. She was "limp." She remained that way for about 5 minutes, until EMS arrived. Per EMS was on scene for approximately 15 minutes, still no change in her level of consciousness. She was found to be initially hypotensive, was given an LR bolus. She became responsive in route to the hospital. She did have emesis outside of the ambulance. At this time, the patient states she has absolutely no symptoms. She denies any difficulty seeing, speaking, swallowing. Moving her arms and legs without difficulty. No chest pain or shortness of breath. On further questioning, the patient states that she has been intermittently feeling dizzy. She attributes this to the Bumex, which she started about a month ago. This was initiated after Lasix was discontinued. - Related Data Allergies/Adverse Reactions: No Known Allergies Allergy (Verified 03/06/18 03:07) Home Medications: Losartan, Bumex, Coreg, isosorbide, atorvastatin Past Medical History - General Information source: Patient, Relative - Social History Smoking Status: Never Smoker Chew tobacco use (# tins/day): No Frequency of alcohol use: None Drug Abuse: None Family History: Hypertension - Other, Malignancy - Paternal grandmother Patient has homicidal ideation: No - Past Medical History Cardiac Medical History: Reports: Hx Congestive Heart Failure, Hx Hypercholesterolemia, Hx Hypertension Denies: Hx Coronary Artery Disease, Hx Heart Attack Pulmonary Medical History: Reports: Hx Sleep Apnea - states she has frequent apneic spells at night no formal workup done Denies: Hx Asthma, Hx Bronchitis, Hx COPD, Hx Pneumonia Neurological Medical History: Denies: Hx Cerebrovascular Accident, Hx Seizures Endocrine Medical History: Reports: Hx Diabetes Mellitus Type 2 - Patient states she was told diabetic, not on medications, no problems Renal/ Medical History: Denies: Hx Peritoneal Dialysis Malignancy Medical History: Reports: Hx Breast Cancer Musculoskeletal Medical History: Denies Hx Arthritis Past Surgical History: Reports: Hx Hysterectomy, Hx Mastectomy - Right breast lumpectomy, Other - Colonoscopy 2017, exploratory laparotomy with resection tumor - Immunizations Hx Diphtheria, Pertussis, Tetanus Vaccination: Yes Hx Pneumococcal Vaccination: 03/07/19 Review of Systems - Review of Systems Constitutional: See HPI EENT: No symptoms reported Cardiovascular: See HPI Respiratory: No symptoms reported Gastrointestinal: See HPI Genitourinary: No symptoms reported Musculoskeletal: No symptoms reported Skin: No symptoms reported Neurological/Psychological: No symptoms reported Physical Exam - Vital signs Vitals: Temp 98.0 F 03/06/20 12:58 - Notes Notes: Is a very pleasant 79-year-old female who appears her stated age, no acute distr ess. She has some dried emesis in the lower part of her hair. Vital signs reviewed, please refer to chart. Head is normocephalic, atraumatic. Pupils equal round, reactive to light. Neck is supple without meningismus. Heart is regular rate and rhythm. Lungs are clear to auscultation bilaterally. Abdomen is soft, nontender, normoactive bowel sounds throughout. Extremities without cyanosis, clubbing. Posterior calves are nontender. Peripheral pulses are equal. Skin is warm and dry. Patient is awake, alert, oriented x3. Cranial nerves II - XII are grossly intact without focal neurological deficits. Strength is plus 5 out of 5 bilateral upper and lower extremities. Sensation is intact. Reflexes symmetrical. Intact [id number], rapid alternating movements, [id number]. Course - Re-evaluation Re-evalutation: 03/06/20 14:08 Patient presents to the emergency department for evaluation. Laboratory investi gations were ordered, EKG, imaging is ordered. Patient is currently stable, asymptomatic. We will continue to monitor. 03/06/20 18:32 Patient has remained stable throughout the course of her stay. Her laboratory investigations are largely unremarkable, with the exception of a increased BUN to creatinine ratio. I do suspect there might be some aspect of the fact that her Bumex dose may be too high. Unfortunately her director of therapy services is out of town. I am concerned, however, given the length of this patient's unresponsive episode. Certainly there could have been some vagal issues, but I cannot rule out a V. tach or other significant cardiac arrhythmia that caused this patient symptoms. I spoke with Dr. Smith, he will accept the patient for further care. - Vital Signs Vital signs: Temp Pulse Resp BP Pulse Ox 98.0 F 67 15 167/91 H 96 03/06/20 13:34 03/06/20 17:35 03/06/20 18:01 03/06/20 18:01 03/06/20 18:01 - Laboratory Result Diagrams: 03/06/20 13:16 03/06/20 13:16 Laboratory results interpreted by me: 03/06/20 03/06/20 03/06/20 13:11 13:16 13:16 Hct 35.7 L RDW 15.2 H Sodium 134.8 L Chloride 96 L BUN 29 H Glucose 164 H POC Glucose 179 H Total Protein 6.1 L Urine Urobilinogen Urine Ascorbic Acid 03/06/20 15:44 Hct RDW Sodium Chloride BUN Glucose POC Glucose Total Protein Urine Urobilinogen 2.0 H Urine Ascorbic Acid 20 H - Diagnostic Test Radiology reviewed: Reports reviewed Radiology results interpreted by me: 03/06/20 18:[address] 03/06/20 13:23 IMPRESSION: CHRONIC CHANGES OF ATROPHY AND MICROVASCULAR ISCHEMIA. NO ACUTE PROCESS. EVIDENCE OF ACUTE STROKE: NO. - EKG Interpretation by Me Additional EKG results interpreted by me: 03/06/20 14:09 Sinus mechanism with a rate of 62 bpm. Normal axis and intervals. Some nonspecific appearing ST depression concerning for possible anterolateral i schemia. No acute ST elevation concerning for acute infarction. This was compared to prior study performed in July of this year, ischemic changes are new. Discharge - Discharge Clinical Impression: Syncope and collapse Condition: Stable Disposition: ADMITTED OBSERVATION Admitting Provider: Sarah (Hospitalist) Unit Admitted: Telemetry Referrals: HILLARY MOREL MD [ACTIVE STAFF] - Follow up as needed
[2020-03-06 14:18] LABS: CREATINE KINASE MB 1.01 ng/mL (<4.55)
[2020-03-06 14:20] LABS: TROPONIN I < 0.012 ng/mL
[2020-03-06 16:15] LABS: APPEARANCE,URINE CLEAR; BILIRUBIN,URINE NEGATIVE (NEGATIVE); COLOR,URINE YELLOW; GLUCOSE, URINE NEGATIVE (NEGATIVE); KETONES,URINE NEGATIVE (NEGATIVE); LEUKOCYTE ESTERASE,URINE NEGATIVE (NEGATIVE); NITRITE,URINE NEGATIVE (NEGATIVE); PROTEIN,URINE NEGATIVE (NEGATIVE); URINE SPECIFIC GRAVITY 1.011
[2020-03-06] MEDS ORDERED: ONDANSETRON HCL INJ/PF 4 MG/2 ML SDV IV PRN (18:46)
[2020-03-06] MEDS ORDERED: ONDANSETRON 4 MG TAB.RAPDIS PO PRN (18:46)
[2020-03-06] MEDS ORDERED: ACETAMINOPHEN 325 MG TABLET PO PRN (18:46)
--- NOTE | 2020-03-06 18:59 | EKG REPORT ---
SEVERITY:- ABNORMAL ECG - SINUS RHYTHM LVH WITH SECONDARY REPOLARIZATION ABNORMALITY : Confirmed by: Dennis Purcell MD 06-Mar-2020 18:58:56
--- NOTE | 2020-03-06 19:02 | PDOC H&P ---
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 Patient states this is never occurred in the past. She was recently diagnosed with CHF on a previous admission earlier this year and she was meant to follow- up with Dr. Arce in cardiology however she was unaware that she needed to do so and never followed up with him. Patient was prescribed multiple CHF m edications including Lasix which she states she has been wondering if this is dehydrating her lately. When EMS arrived to her home her blood pressure was extremely low with systolic in the 60s to 70s and she was given a bolus of IV fluids in route to the hospital. On admission, patient has returned completely to her baseline and is smiling and comfortable. Unclear if she had an arrhythmia, seizure, or she was simply volume depleted from her Lasix. Admit for telemetry observation. We will get carotid PVL. She had an echocardiogram done in December of this year, no need to repeat. We will reduce Lasix dose and potentially other cardiac medications depending on how her blood pressure does while she is here. Past Medical History Cardiac Medical History: Reports: Congestive Heart Failure, Hyperlipidema, Hypertension Denies: Coronary Artery Disease, Myocardial Infarction Pulmonary Medical History: Reports: Sleep Apnea - states she has frequent apneic spells at night no formal workup done Denies: Asthma, Bronchitis, Chronic Obstructive Pulmonary Disease (COPD), Pneumonia Neurological Medical History: Denies: Seizures Endocrine Medical History: Reports: Diabetes Mellitus Type 2 - Patient states she was told diabetic, not on medications, no problems Malignancy Medical History: Reports: Breast Cancer Musculoskeltal Medical History: Denies: Arthritis Hematology: Denies: Anemia Past Surgical History Past Surgical History: Reports: Hysterectomy, Mastectomy - Right breast lumpectomy, Other - Colonoscopy 2017, exploratory laparotomy with resection tumor Social History Information Source: Patient, Relative, Emergency Med Personnel Lives with: Family Smoking Status: Never Smoker Electronic Cigarette use?: No Frequency of Alcohol Use: Occasional Hx Recreational Drug Use: No Drugs: None Hx Prescription Drug Abuse: No - Advance Directive Resuscitation Status: Full Code Surrogate healthcare decision maker:: Tanner Family History Family History: CAD, Hypertension - Other, Malignancy - Paternal grandmother Parental Family History Reviewed: Yes Children Family History Reviewed: Yes Sibling(s) Family History Reviewed.: Yes Medication/Allergy Home Medications: Losartan Potassium [Cozaar 25 mg Tablet] 50 mg PO BID 08/03/19 Acetaminophen [Tylenol 325 mg Tablet] 650 mg PO Q4HP PRN tablet 08/05/19 Atorvastatin Calcium [Lipitor 20 mg Tablet] 20 mg PO QHS #30 tablet 08/05/19 Carvedilol [Coreg 3.125 mg Tablet] 3.125 mg PO Q12 #60 tablet 08/05/19 Furosemide [Lasix 20 mg Tablet] 20 mg PO QAM #30 08/05/19 Allergies/Adverse Reactions: No Known Allergies Allergy (Verified 03/06/18 03:07) Review of Systems All systems: reviewed and no additional remarkable complaints except as stated - Review of systems per HPI otherwise negative Physical Exam Vital Signs: Temp Pulse Resp BP Pulse Ox 98.0 F 67 15 167/91 H 96 03/06/20 13:34 03/06/20 17:35 03/06/20 18:01 03/06/20 18:01 03/06/20 18:01 Intake & Output 03/05/20 03/06/20 03/07/20 06:59 06:59 06:59 Weight 65.3 kg General appearance: PRESENT: no acute distress, well-developed, well-nourished Head exam: PRESENT: atraumatic, normocephalic Eye exam: PRESENT: conjunctiva pink. ABSENT: scleral icterus Mouth exam: PRESENT: moist Respiratory exam: PRESENT: clear to auscultation hellen. ABSENT: rales, rhonchi, wheezes Cardiovascular exam: PRESENT: RRR. ABSENT: diastolic murmur, rubs, systolic murmur GI/Abdominal exam: PRESENT: normal bowel sounds, soft. ABSENT: distended, guarding, mass, organolmegaly, rebound, tenderness Rectal exam: PRESENT: deferred Extremities exam: ABSENT: pedal edema Neurological exam: PRESENT: alert, awake, oriented to person, oriented to place, oriented to time, oriented to situation, CN II-XII grossly intact. ABSENT: motor sensory deficit Psychiatric exam: PRESENT: appropriate affect, normal mood Skin exam: PRESENT: dry, intact, warm Results Laboratory Results: 03/06/20 13:16 03/06/20 13:16 03/06/20 03/06/20 03/06/20 13:16 13:16 15:44 WBC 5.7 RBC 4.32 Hgb 12.2 Hct 35.7 L MCV 83 MCH 28.2 MCHC 34.2 RDW 15.2 H Plt Count 232 Seg Neutrophils % 61.3 Sodium 134.8 L Potassium 3.9 Chloride 96 L Carbon Dioxide 29 Anion Gap 10 BUN 29 H Creatinine 0.88 Est GFR ( Amer) > 60 Glucose 164 H Calcium 9.2 Total Bilirubin 0.7 AST 24 Alkaline Phosphatase 69 Total Protein 6.1 L Albumin 3.6 Urine Color YELLOW Urine Appearance CLEAR Urine pH 6.0 Ur Specific [place] 1.011 Urine Protein NEGATIVE Urine Glucose (UA) NEGATIVE Urine Ketones NEGATIVE Urine Blood NEGATIVE Urine Nitrite NEGATIVE Ur Leukocyte Esterase NEGATIVE Urine WBC (Auto) 1 Urine RBC (Auto) 0 03/06/20 03/06/20 13:16 13:16 Creatine Kinase 58 CK-MB (CK-2) 1.01 Troponin I < 0.012 Impressions: Head CT 03/06/20 13:23 IMPRESSION: CHRONIC CHANGES OF ATROPHY AND MICROVASCULAR ISCHEMIA. NO ACUTE PROCESS. EVIDENCE OF ACUTE STROKE: NO. Assessment and Plan - Diagnosis (1) Syncope and collapse Is this a current diagnosis for this admission?: Yes Plan: Etiology likely hypotension from dehydration due to Lasix and other cardiac medications; alternatively, possible acute ventricular arrhythmia given she has extremely low EF and does not have an AICD/defibrillator Rule out carotid stenosis with carotid PVL Recent echocardiogram reviewed, showed EF 30 to 35% with moderate to severe systolic and diastolic CHF Telemetry Cut dose of Lasix in half Cardiology consult to eval for possible cardiogenic syncope which may require AICD Must follow-up with cardiology outpatient (2) Chronic combined systolic (congestive) and diastolic (congestive) heart failure Is this a current diagnosis for this admission?: Yes Plan: Echocardiogram reviewed as above Continue home cardiac medications with exception of cutting Lasix dose in half Needs follow-up with Dr. Arce in cardiology outpatient Will need evaluation for possible AICD/defibrillator given very low EF (3) HTN (hypertension) Is this a current diagnosis for this admission?: Yes Plan: Home meds (4) Hyperlipidemia Is this a current diagnosis for this admission?: Yes Plan: Statin (5) Long QT interval Is this a current diagnosis for this admission?: Yes Plan: QT interval normal on admission Telemetry Possible arrhythmia as etiology of syncope (6) Sleep apnea Is this a current diagnosis for this admission?: Yes - Time Time Spent with patient: 35 or more minutes Medications reviewed and adjusted accordingly: Yes Anticipated Discharge Disposition: Home, Self Care Anticipated Discharge Timeframe: within 24 hours Disposition: Admitting diagnosis: Syncope with collapse All aspects of code status discussed with patient/POA including cardioversion, chest compressions, and intubation and the patient/POA indicated they wish to be full code MPOA is designated as: , Tanner Time spent: Greater than 16 minutes - Inpatient Certification Based on my medical assessment, after consideration of the patient's comorbidities, presenting symptoms, or acuity I expect that the services needed warrant INPATIENT care.: Yes I certify that my determination is in accordance with my understanding of Medicare's requirements for reasonable and necessary INPATIENT services [42 CFR 412.3e].: Yes Medical Necessity: Significant Comorbidiites Make Outpatient Treatment Too Risky, Need Close Monitoring Due to Risk of Patient Decompensation, Risk of Complication if Not Cared For in Hospital, Risk of Diagnosis Which Will Require Inpatient Eval/Care/Monitoring
[2020-03-06] MEDS: CARVEDILOL 3.125 MG TABLET PO SCH (21:23)
[2020-03-06] MEDS ORDERED: ATORVASTATIN CALCIUM 20 MG TABLET PO SCH (22:00)
[2020-03-07 06:54] LABS: ABSOLUTE BASOPHILS # (AUTO) 0.1 10^3/uL (0.0-0.2); ABSOLUTE EOSINOPHILS # (AUTO) 0.1 10^3/uL (0.0-0.6); ABSOLUTE LYMPHOCYTES (AUTO) 1.5 10^3/uL (0.5-4.7); ABSOLUTE MONOCYTES (AUTO) 0.6 10^3/uL (0.1-1.4); ABSOLUTE NEUT (AUTO) 3.8 10^3/uL (1.7-8.2); BASOPHILS % (AUTO) 1.1 % (0-2); EOSINOPHILS % (AUTO) 2.4 % (0-6); HEMATOCRIT 38.2 % (36.0-47.0); HEMOGLOBIN 13.3 g/dL (12.0-15.5); LYMPHOCYTES % (AUTO) 25.2 % (13-45); MEAN CORPUSCULAR HEMOGLOBIN 28.5 pg (27.0-33.4); MEAN CORPUSCULAR HGB CONC 34.8 g/dL (32.0-36.0); MEAN CORPUSCULAR VOLUME 82 fl (80-97); MONOCYTES % (AUTO) 9.1 % (3-13); PLATELET COUNT 239 10^3/uL (150-450); RED BLOOD COUNT 4.67 10^6/uL (3.72-5.28); RED CELL DISTRIBUTION WIDTH 15.4 % (11.5-14.0); SEGMENTED NEUTROPHILS % (AUTO) 62.2 % (42-78); TOTAL CELLS COUNTED % (AUTO) 100 %; WHITE BLOOD COUNT 6.1 10^3/uL (4.0-10.5)
[2020-03-07 07:14] LABS: ANION GAP 9 (5-19); BLOOD UREA NITROGEN 21 mg/dL (7-20); CALCIUM 9.8 mg/dL (8.4-10.2); CARBON DIOXIDE 31 mmol/L (22-30); CHLORIDE 97 mmol/L (98-107); GLUCOSE 113 mg/dL (75-110); PHOSPHORUS 4.4 mg/dL (2.5-4.5); POTASSIUM 4.1 mmol/L (3.6-5.0)
[2020-03-07] MEDS ORDERED: FUROSEMIDE 20 MG TABLET PO SCH (08:00)
[2020-03-07] MEDS: LOSARTAN POTASSIUM 25 MG TABLET PO SCH ×2 (09:35→17:18)
[2020-03-07] MEDS: CARVEDILOL 3.125 MG TABLET PO SCH (09:35)
[2020-03-07] MEDS ORDERED: ENOXAPARIN SODIUM INJ 40 MG/0.4 ML DISP.SYRIN SUBCUT SCH (10:00)
[2020-03-07] MEDS ORDERED: DOCUSATE SODIUM 100 MG CAPSULE PO SCH (10:00)
--- NOTE | 2020-03-07 11:51 | RADIOLOGY REPORT (SQ) ---
EXAM DESCRIPTION: CAROTID DOPPLER IMAGES COMPLETED DATE/TIME: 03/07/2020 10:19 am REASON FOR STUDY: syncope I50.22 CHRONIC SYSTOLIC (CONGESTIVE) HEART FAILURE COMPARISON: None. TECHNIQUE: Grayscale ultrasound, Doppler velocity and spectra, and color Doppler images acquired of the extra-cranial carotid and vertebral arteries. Images stored on PACS. LIMITATIONS: None. FINDINGS: RIGHT CAROTID CCA Velocities: Within normal limits. ICA Velocities Peak systolic 115 cm/s. End diastolic 31 cm/s. Proximal ICA/CCA peak systolic ratio 1.83. Spectral broadening and dampened waveforms. Moderate coarse atherosclerotic plaque at the carotid bu lb proximal internal carotid artery. LEFT CAROTID CCA Velocities: Within normal limits. ICA Velocities Peak systolic 299 cm/s. End diastolic 75 cm/s. Proximal ICA/CCA peak systolic ratio 5.8. Spectral broadening with dampened waveforms. Large amount of coarse echogenic atherosclerotic plaque at the carotid bulb and proximal internal carotid artery. VERTEBRAL ARTERIES: Antegrade flow. Normal waveforms. SUBCLAVIAN ARTERIES: No finding. OTHER: No other significant finding. IMPRESSION: 1. 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 2. Less than 50% stenosis right internal carotid artery. COMMENT: Quality ID #[id number]: Velocity criteria are extrapolated from the diameter data as defined by t he Society of Radiologists in Ultrasound Consensus Conference. Radiology 2003: 229; 340-346. TECHNICAL DOCUMENTATION: JOB ID: [id number] 2010 [employer]- All Rights Reserved Reading location - IP/workstation name: [email or web address]
--- NOTE | 2020-03-07 17:13 | PDOC TRANSFER SUMMARY ---
General Admission Date/PCP: 03/06/20 19:12 ISMAEL DE LA ROSA MD Resuscitation Status: Full Code - Transfer Diagnosis (1) Syncope and collapse Is this a current diagnosis for this admission?: Yes (2) Chronic combined systolic (congestive) and diastolic (congestive) heart failure Is this a current diagnosis for this admission?: Yes (3) HTN (hypertension) Is this a current diagnosis for this admission?: Yes (4) Hyperlipidemia Is this a current diagnosis for this admission?: Yes (5) Long QT interval Is this a current diagnosis for this admission?: Yes (6) Sleep apnea Is this a current diagnosis for this admission?: Yes (7) Nonischemic cardiomyopathy Is this a current diagnosis for this admission?: Yes Diagnosis Summary: Had cardiac catheterization in 08/2019 that showed no significant narrowing of coronary arteries, discussed with Dr. Arce (8) Successful cardiopulmonary resuscitation Is this a current diagnosis for this admission?: Yes Diagnosis Summary: Per patient, her did CPR on her for 10 minutes prior to EMS arrival, highly suspicious for cardiac arrest due to arrhythmia Transfer to [facility] for AICD evaluation and placement, discussed with Dr. Arce who requested transfer - Transfer Medications Home Medications: Losartan Potassium [Cozaar 25 mg Tablet] 25 mg PO BID 08/03/19 Bumetanide [Bumex 1 mg Tablet] 1 mg PO BID 03/06/20 Isosorbide Mononitrate [Imdur 30 mg Tablet.er] 30 mg PO DAILY 03/06/20 Ubidecarenone/Vit E Acet [Co Q-10 100 mg Softgel] 1 each PO DAILY 03/06/20 Vitamin C/Biotin [Vthb-Nytl-Ggfkm Gummies] 1 each PO DAILY 03/06/20 Transfer Medications: Current Medications Acetaminophen (Tylenol 325 Mg Tablet) 650 mg PO Q4HP PRN PRN Reason: pain or fever Stop: 04/05/20 18:45 Atorvastatin Calcium (Lipitor 20 Mg Tablet) 20 mg PO QHS MISSY Stop: 04/05/20 21:59 Last Admin: 03/06/20 21:24 Dose: 20 mg Documented by: Carvedilol (Coreg 3.125 Mg Tablet) 3.125 mg PO Q12 MISSY Stop: 04/05/20 21:59 Last Admin: 03/07/20 09:35 Dose: 3.125 mg Documented by: Docusate Sodium (Colace 100 Mg Capsule) 100 mg PO DAILY MISSY Stop: 04/06/20 09:59 Last Admin: 03/07/20 09:35 Dose: 100 mg Documented by: Enoxaparin Sodium (Lovenox Inj 40 Mg/0.4 Ml Disp.Syrin) 40 mg SUBCUT DAILY MISSY Stop: 04/06/20 09:59 Last Admin: 03/07/20 09:35 Dose: 40 mg Documented by: Furosemide (Lasix 20 Mg Tablet) 10 mg PO QAM MISSY Stop: 04/06/20 07:59 Last Admin: 03/07/20 09:35 Dose: 10 mg Documented by: Losartan Potassium (Cozaar 25 Mg Tablet) 50 mg PO BID MISSY Stop: 04/06/20 09:59 Last Admin: 03/07/20 09:35 Dose: 50 mg Documented by: Ondansetron HCl (Zofran Odt 4 Mg Tablet) 4 mg PO Q4HP PRN PRN Reason: FOR NAUSEA/VOMITING Stop: 04/05/20 18:45 Ondansetron HCl (Zofran Inj/Pf 4 Mg/2 Ml Sdv) 4 mg IV Q8HP PRN PRN Reason: FOR NAUSEA/VOMITING Stop: 04/05/20 18:45 - Allergies Allergies/Adverse Reactions: No Known Allergies Allergy (Verified 03/06/18 03:07) - Diet/Activity Discharge Diet: Cardiac, Diabetic Discharge Activity: Activity As Tolerated, Balance Activity w/Rest Hospital Course Hospital Course: MARIALUISA COMER is a 79 year old female with past medical history significant for moderate to severe combined systolic/diastolic CHF, HTN, HLD, history of breast cancer status post lumpectomy who presents after a syncopal episode witnessed by her at home lasting approximately 10 minutes during which patient unconsciously vomited and then awoke with mild somnolence. Patient states this is never occurred in the past. She was recently diagnosed with CHF on a previous admission earlier this year and she was meant to follow- up with Dr. Arce in cardiology however she was unaware that she needed to do so and never followed up with him. Patient was prescribed multiple CHF medications including Lasix which she states she has been wondering if this is dehydrating her lately. When EMS arrived to her home her blood pressure was extremely low with systolic in the 60s to 70s and she was given a bolus of IV fluids in route to the hospital. On admission, patient has returned completely to her baseline and is smiling and comfortable. Unclear if she had an arrhythmia, seizure, or she was simply volume depleted from her Lasix. Admit for telemetry observation. We will get carotid PVL. She had an echocardiogram done in December of this year, no need to repeat. We will reduce Lasix dose and potentially other cardiac medications depending on how her blood pressure does while she is here. Patient later stated that while she was unresponsive her perform CPR on her. It is unclear whether or not he checked for or was able to find a pulse at that time. Situation highly suspicious for cardiac arrest in the setting of severely low EF. Troponins remain negative. I called patient's outpatient windows server administrator Dr. Arce and discussed the case with him. He has been following the patient for the past several months and stated she had a cardiac catheterization 08/2019 showed no significant stenoses of coronary arteries. He requested that the patient be transferred to [facility] for AICD evaluation placement. We have reduced patient's diuretic dose of Bumex 1 mg twice daily down to 0.5 mg twice daily. Telemetry here has shown multiple PVCs intermittently but has not shown any specific sustained ventricular arrhythmias. (1) Syncope and collapse Is this a current diagnosis for this admission?: Yes Plan: Etiology possibly cardiac arrest versus hypotension from dehydration due to Bumex and other cardiac medications; possible acute ventricular arrhythmia given she has extremely low EF and does not have an AICD/defibrillator Rule out carotid stenosis with carotid PVL Recent echocardiogram reviewed, showed EF 30 to 35% with moderate to severe systolic and diastolic CHF Telemetry Cut dose of Lasix in half Cardiology consult to eval for possible cardiogenic syncope which may require AICD Discussed the case with Dr. Arce who follows the patient in his clinic, he recommended transfer to [facility] for AICD evaluation and placement Must follow-up with cardiology outpatient (2) Chronic combined systolic (congestive) and diastolic (congestive) heart failure Is this a current diagnosis for this admission?: Yes Plan: Echocardiogram reviewed as above Continue home cardiac medications with exception of cutting Lasix dose in half Needs follow-up with Dr. Arce in cardiology outpatient Will need evaluation for possible AICD/defibrillator given very low EF (3) HTN (hypertension) Is this a current diagnosis for this admission?: Yes Plan: Home meds (4) Hyperlipidemia Is this a current diagnosis for this admission?: Yes Plan: Statin (5) Long QT interval Is this a current diagnosis for this admission?: Yes Plan: QT interval normal on admission Telemetry Possible arrhythmia as etiology of syncope (6) Sleep apnea Is this a current diagnosis for this admission?: Yes Physical Exam Vital Signs: Temp Pulse Resp BP Pulse Ox 97.4 F 84 19 146/60 H 99 03/07/20 12:13 03/07/20 12:13 03/07/20 12:13 03/07/20 12:13 03/07/20 12:13 Intake & Output 03/06/20 03/07/20 03/08/20 06:59 06:59 06:59 Intake Total 1040 Balance 1040 Weight 65.3 kg Exam: General appearance: PRESENT: no acute distress, well-developed, well-nourished, states she is in agreement with transfer Head exam: PRESENT: atraumatic, normocephalic Eye exam: PRESENT: conjunctiva pink. ABSENT: scleral icterus Mouth exam: PRESENT: moist Respiratory exam: PRESENT: clear to auscultation hellen. ABSENT: rales, rhonchi, wheezes Cardiovascular exam: PRESENT: RRR. ABSENT: diastolic murmur, rubs, systolic murmur GI/Abdominal exam: PRESENT: normal bowel sounds, soft. ABSENT: distended, gu arding, mass, organolmegaly, rebound, tenderness Rectal exam: PRESENT: deferred Extremities exam: ABSENT: pedal edema Neurological exam: PRESENT: alert, awake, oriented to person, oriented to place, oriented to time, oriented to situation, CN II-XII grossly intact. ABSENT: motor sensory deficit Psychiatric exam: PRESENT: appropriate affect, normal mood Skin exam: PRESENT: dry, intact, warm Results Laboratory Results: 03/07/20 06:07 03/07/20 06:07 03/06/20 03/07/20 03/07/20 15:44 06:07 06:07 WBC 6.1 RBC 4.67 Hgb 13.3 Hct 38.2 MCV 82 MCH 28.5 MCHC 34.8 RDW 15.4 H Plt Count 239 Seg Neutrophils % 62.2 Sodium 137.3 Potassium 4.1 Chloride 97 L Carbon Dioxide 31 H Anion Gap 9 BUN 21 H Creatinine 0.73 Est GFR ( Amer) > 60 Glucose 113 H Calcium 9.8 Phosphorus 4.4 Magnesium 2.1 TSH Urine Color YELLOW Urine Appearance CLEAR Urine pH 6.0 Ur Specific [place] 1.011 Urine Protein NEGATIVE Urine Glucose (UA) NEGATIVE Urine Ketones NEGATIVE Urine Blood NEGATIVE Urine Nitrite NEGATIVE Ur Leukocyte Esterase NEGATIVE Urine WBC (Auto) 1 Urine RBC (Auto) 0 03/07/20 06:07 WBC RBC Hgb Hct MCV MCH MCHC RDW Plt Count Seg Neutrophils % Sodium Potassium Chloride Carbon Dioxide Anion Gap BUN Creatinine Est GFR ( Amer) Glucose Calcium Phosphorus Magnesium TSH 0.94 Urine Color Urine Appearance Urine pH Ur Specific [place] Urine Protein Urine Glucose (UA) Urine Ketones Urine Blood Urine Nitrite Ur Leukocyte Esterase Urine WBC (Auto) Urine RBC (Auto) 03/06/20 03/06/20 03/07/20 13:16 13:16 06:07 Creatine Kinase 58 CK-MB (CK-2) 1.01 Troponin I < 0.012 < 0.012 NT-Pro-B Natriuret Pep 03/07/20 06:07 Creatine Kinase CK-MB (CK-2) Troponin I NT-Pro-B Natriuret Pep 4670 H Impressions: Head CT 03/06/20 13:23 IMPRESSION: CHRONIC CHANGES OF ATROPHY AND MICROVASCULAR ISCHEMIA. NO ACUTE PROCESS. EVIDENCE OF ACUTE STROKE: NO. Carotid Doppler Study 03/07/20 00:00 IMPRESSION: 1. 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 2. Less than 50% stenosis right internal carotid artery. Plan Time Spent: Greater than 30 Minutes
[2020-03-07] MEDS ORDERED: BUMETANIDE 1 MG TABLET PO SCH (18:00)
[2020-03-07 18:34] VITALS: BP 154/77
[2020-03-08] MEDS ORDERED: ISOSORBIDE MONONITRATE 30 MG TAB.ER.24H PO SCH (10:00)
[2020-03-08] MEDS ORDERED: BIOTIN PO SCH (10:00)
[2020-03-08] MEDS ORDERED: VITAMIN C PO SCH (10:00)
[2020-03-08] MEDS ORDERED: (PENDING PHARMACY ID) (Ubidecarenone/Vit E Acet [Co Q-10 100 Mg Softgel] 1 EACH) PO SCH (10:00)
== END 2020-03-07 19:53 | disposition short-term general hospital (02) | DRG 312 ==
LOC: ER 12:57 → OBSVTOIN 19:12 → EH 19:12 → 4S 20:13
PROVIDERS: ADMIT Internal Medicine; ATTEND Internal Medicine
DX: R55 Syncope and collapse (principal); I50.42 Chronic combined systolic (congestive) and diastolic (congestive) heart failure; I42.8 Other cardiomyopathies; I95.9 Hypotension, unspecified; I11.0 Hypertensive heart disease with heart failure; E86.0 Dehydration; I49.3 Ventricular premature depolarization; E78.5 Hyperlipidemia, unspecified; I45.81 Long QT syndrome; G47.30 Sleep apnea, unspecified; R11.10 Vomiting, unspecified; R40.0 Somnolence; Z79.899 Other long term (current) drug therapy; Z85.3 Personal history of malignant neoplasm of breast; Z82.49 Family history of ischemic heart disease and other diseases of the circulatory system; Z98.890 Other specified postprocedural states
CPT/HCPCS: 36415; 70450; 80048; 80053; 81001; 82550; 82553; 82962; 83036; 83735; 83880; 84100; 84443; 84484; 85025; 93005; 93010; 93880; 99285; G0378; J1650